=== PATIENT | male | born 1960 | race Caucasian/White ===

== ENCOUNTER 2020-05-07 17:33 | Observation (INO) | payer OTHER, SELFPAY ==
--- NOTE | ~2020-05-07 | XR_ITS ---
EXAMINATION: XR chest 2V EXAM DATE: 05/07/2020 18:03 INDICATION: Mid chest pain after shoveling snow. History of myocardial infarction and stent. TECHNIQUE: Frontal and lateral projections of the chest obtained and reviewed. Comparison is made to prior examination from 12/28/2017. FINDINGS: Resolution of previously seen basilar opacities. The lungs are clear. There are no pleura l effusions. The cardiomediastinal silhouette is within normal limits. There is no pneumothorax tacos pected. The bones and soft tissues are unremarkable. IMPRESSION: No acute cardiopulmonary findings. Reviewed, dictated and finalized at location A. CH ASSEMBLER
--- NOTE | 2020-05-07 17:38 | ECG_ITS ---
Measurements Intervals [place] Rate: 62 P: 33 MO: 181 QRS: -37 QRSD: 150 T: 24 QT: 420 QTc: 428 Interpretive Statements SINUS RHYTHM LEFT AXIS DEVIATION RIGHT BUNDLE BRANCH BLOCK ABNORMAL ECG Electronically Signed On 05-08-2020 7:05:30 APPLICATION PROCESSOR by Pantera Trcaey D.O.
[2020-05-07 17:42] VITALS: BP 148/95; PULSE 74; RESP 18; TEMP 36.1; O2SAT 99
[2020-05-07 17:55] LABS: Basophils Absolute Auto 0.1 K/mm3 (0.0-0.1); Basophils Percent Auto 0.5 % (0.2-1.2); Eosinophils Absolute Auto 0.1 K/mm3 (0-0.3); Hematocrit 43.9 % (42.0-52.0); Hemoglobin 15.3 g/dL (14.0-18.0); Immature Granulocyte Absolute 0.03 K/mm3 (0.00-0.031); Immature Granulocyte Percent A 0.3 % (0-0.5); Lymphocytes Absolute Auto 2.52 K/mm3 (0.9-3.2); Lymphocytes Percent Auto 26.8 % (18.3-44.2); Mean Corpuscular HGB Conc 34.9 g/dl (32-36); Mean Corpuscular Hemoglobin 31.5 pg (26-34); Mean Corpuscular Volume 90.3 fl (80-100); Mean Platelet Volume 9.9 fl (7.4-10.4); Monocytes Absolute Auto 0.6 K/mm3 (0.1-0.6); Monocytes Percent Auto 6.6 % (2.6-8.5); Neutrophils Absolute Auto 6.1 K/mm3 (1.3-6.7); Neutrophils Percent Auto 64.8 % (45.5-73.1); Platelet Count Result 141 k/mm3 (150-375); Red Blood Count 4.86 M/mm3 (4.6-6.20); Red Cell Distribution Width 11.9 % (11.5-14.5); White Blood Count 9.4 K/mm3 (4.5-10.0)
[2020-05-07 18:04] LABS: Prothrombin Time 13.3 Seconds (11.1-14.7)
[2020-05-07 18:05] LABS: Partial Thromboplastin Time 25.7 SECONDS (22.3-36.8)
[2020-05-07 18:06] LABS: Anion Gap 7 mmol/L (8-16); Blood Urea Nitrogen 17 mg/dL (9-20); Calcium 9.8 mg/dL (8.4-10.2); Carbon Dioxide 28 mmol/L (22-30); Chloride 105 mmol/L (98-107); Estimated CRCL calculation 96 ml/min; Estimated Glomerular Filt Rate > 60; Glucose 108 mg/dL (75-110); Potassium 4.4 mmol/L (3.4-5.0); Sodium 140 mmol/L (137-145)
[2020-05-07 18:18] LABS: Troponin I < 0.012 ng/mL (0.000-0.034)
[2020-05-07 18:50] VITALS: BP 129/74; BP 153/84; PULSE 80; PULSE 83; PULSE 84; RESP 11; RESP 16; TEMP 36.4; O2SAT 98; O2SAT 99
--- NOTE | 2020-05-07 18:52 | PC.NURSE ---
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
[2020-05-07] MEDS: ASPIRIN 81 MG CHEWABLE TABLET PO (19:07)
--- NOTE | 2020-05-07 19:10 | PC.NURSE ---
Report to KEVIN Porter at this time, he has assumed pt care.
--- NOTE | 2020-05-07 19:55 | ED.GENADULT ---
HPI - General Adult General Chief complaint: Chest Pain Stated complaint: chest discomfort Time Seen by Provider: 05/07/20 19:05 Source: patient History of Present Illness HPI narrative: Patient is 59 y/o male complaining of intermittent chest pain for 1 week. He describes his pain as burning and rates it as 4/10. There is no pain radiation. He states that his chest pain is worse with activity. His pain got worse today after shoveling snow. He has no SOB, cough or fever. Related Data Home Medications Medication Instructions Recorded Confirmed aspirin 81 mg PO DAILY 05/07/20 05/08/20 atorvastatin 80 mg PO HS 05/07/20 05/07/20 ezetimibe 10 mg PO DAILY 05/07/20 05/08/20 Allergies Allergy/AdvReac Type Severity Reaction Status Date / Time Penicillins Allergy Unknown Verified 05/08/20 10:51 Review of Systems Constitutional: Constitutional: Denies chills, Denies fever(s), Denies headache(s) and Denies weakness Eyes: Eyes: Denies blurry vision ENT: Denies headache(s) and Denies neck pain Cardiovascular: Cardiovascular: Reports chest pain and Denies dyspnea Respiratory: Respiratory: Denies cough and Denies dyspnea Gastrointestinal: Gastrointestinal: Denies abdominal pain, Denies diarrhea, Denies nausea and Denies vomiting Genitourinary: Genitourinary: Denies hematuria and Denies dysuria Musculoskeletal: Musculoskeletal: Denies back pain and Denies neck pain Neurologic: Denies headache(s) and Denies weakness PMFSH Past Medical History Medical History CAD (coronary artery disease) Essential (primary) hypertension Myocardial infarction Surgical History Surgical History History of heart artery stent Family History Family History Mother Heart disease COPD (chronic obstructive pulmonary disease) Cardiomegaly Social History Social History Smoking status: Former smoker Alcohol intake: current Drinks per week: 4 Substance use: never Substance use type: does not use Gender identity (if verbalized by the patient): Male Spiritual care concerns: No Exam Const: General: no acute distress and well developed Orientation/consciousness: oriented to person, oriented to place, oriented to time and patient oriented x3 HENMT: Head: normocephalic Ears: external ears normal General nose exam: Normal external nose present Eyes: General: appearance normal, both eyes and all related structures Conjunctivae: conjunctivae normal Neck: Neck: normal visual inspection and full ROM Chest: Chest palpation & inspection: normal inspection of the chest and no tenderness Resp: Effort & Inspection: normal respiratory effort Auscultation: clear to auscultation bilaterally Cardio: Rate: regular rate Rhythm: regular rhythm GI: GI Palp: No abdominal tenderness and Yes Soft to palpation Skin: General skin exam: normal color and turgor normal Neuro: General: oriented to person, oriented to place, oriented to time and patient oriented x3 Cognition (Neuro): normal cognition Extrem: General: normal to inspection, full ROM and no pedal edema Psych: Appearance: grossly normal Mental Status: mental status grossly normal Affect: normal affect Course Consultations Consultation #1: Discussed with Dr. Ballard, who recommends admitting to hospitalist and he will consult. Date: 05/07/20 Time: 20:50 Consultation #2: Discussed with Dr. Hay, who agrees to admit. Date: 05/07/20 Time: 21:21 Vital Signs Vital signs: Vital Signs Temperature 36.1 C L 05/07/20 17:42 Pulse Rate 74 05/07/20 17:42 Respiratory Rate 18 05/07/20 17:42 Blood Pressure 148/95 H 05/07/20 17:42 Pulse Oximetry 99 05/07/20 17:42 Temperature 36.4 C L 05/09/20 08:00 Pulse Rate 72 05/09/20 10:00 Respiratory Rate 16 0
[2020-05-07 20:54] VITALS: BP 120/75; PULSE 69; RESP 20; O2SAT 100
[2020-05-07 21:03] LABS: Troponin I < 0.012 ng/mL (0.000-0.034)
[2020-05-07 21:42] VITALS: BP 132/77; PULSE 65; RESP 20; O2SAT 99
--- NOTE | 2020-05-07 22:09 | PM.IMHP ---
H&P: HPI History of Present Illness Date/Time: 05/07/20 22:09 Chief Complaint: Burning chest pain for the past week. Narrative: This is a pleasant 59 year old male with known past medical history of CAD+ s/p Cardiac arrest s/p #1 stent placed and hyperlipidemia who presented to the hospital with a complaint of worsening exertional chest pain today. The patient has had 1 week of intermittent burning chest discomfort which he believed was just indigestion and heart burn. Today he became worried because he was shoveling snow when he started to get severe chest pain. He mentions that he had similar burning chest pain in the past when he suffered a heart attack about 5 years ago. His chest pain is not associated with diaphoresis, nausea, vomiting, shortness of breath or dizziness. His chest pain does not radiate anywhere and lasted several hours tonight. On further questioning he denies any recent fevers, chills, abdominal pain, nausea, vomiting, dysuria, hematuria, diarrhea, rectal bleeding, or LE swelling. The patient was evaluated in the ER and EKG showed a RBBB. Initial troponin was negative. ER provider has consulted Cardiology who has asked that we admit the patient for them and they will evaluate him in the morning. No other complaints tonight. Review of Systems Review of Systems: All systems reviewed & are unremarkable except as noted in HPI and below PMFSH Past Medical History Medical History CAD (coronary artery disease) Essential (primary) hypertension Myocardial infarction Surgical History Surgical History History of heart artery stent Family History Family History Mother Heart disease COPD (chronic obstructive pulmonary disease) Cardiomegaly Social History Social History Smoking status: Former smoker Alcohol intake: current Drinks per week: 4 Substance use: never Substance use type: does not use Gender identity (if verbalized by the patient): Male Spiritual care concerns: No Meds Home Medications and Allergies Home Medications Medication Instructions Recorded Confirmed Type aspirin 81 mg PO DAILY 05/07/20 History atorvastatin 80 mg PO HS 05/07/20 05/07/20 History carvedilol 3.125 mg PO BID 05/07/20 History ezetimibe 10 mg PO DAILY 05/07/20 History lisinopril 5 mg PO DAILY 05/07/20 History Allergies Allergy/AdvReac Type Severity Reaction Status Date / Time Penicillins Allergy Unknown Verified 12/28/17 19:35 Vital Signs Vital Signs - 24 hr 05/07/20 17:42 05/07/20 18:50 05/07/20 20:54 Temperature 36.1 C L 36.4 C Pulse Rate 74 83 69 Respiratory Rate 18 11 L 20 Blood Pressure 148/95 H 129/74 120/75 Pulse Oximetry 99 99 100 05/07/20 21:42 Temperature Pulse Rate 65 Respiratory Rate 20 Blood Pressure 132/77 Pulse Oximetry 99 Exam Const: General: cooperative, healthy appearing, no acute distress, alert and awake Nutritional Appearance: well nourished Orientation/consciousness: patient oriented x3 HENMT: Head: normal to inspection General nose exam: Normal external nose present Face and sinus: normal facial exam Mouth: Yes Normal oral and palatal mucosa present and Yes oropharynx normal Eyes: Pupils: Equal, round and reactive pupils present EOM: EOMs intact bilaterally Neck: Neck: supple and no JVD Thyroid: thyroid normal Lymphatic: lymphadenopathy not noted Resp: Effort & Inspection: normal respiratory effort Auscultation: clear to auscultation bilaterally Cardio: Rate: regular rate Rhythm: regular rhythm Heart sounds: no murmurs GI: Inspection: normal to inspection Auscultation: normal bowel sounds Skin: General skin exam: normal color and no rashes or lesions noted Neuro: General: patient oriented x3 Cranial nerves: Yes
[2020-05-07 22:34] VITALS: BP 137/86; PULSE 73; RESP 20; TEMP 36.7; O2SAT 96; BMI 28.4
--- NOTE | 2020-05-07 22:43 | ECG_ITS ---
Measurements Intervals [place] Rate: 76 P: 18 ND: 170 QRS: -42 QRSD: 149 T: 10 QT: 375 QTc: 424 Interpretive Statements SINUS RHYTHM LEFT AXIS DEVIATION RIGHT BUNDLE BRANCH BLOCK ABNORMAL ECG Electronically Signed On 05-08-2020 13:06:59 IS MANAGER by Pantera Trcaey D.O.
--- NOTE | 2020-05-07 22:43 | ADMGEN ---
This patient, David Hartley, was admitted to IMU Room 205-01. Patient/family oriented to hospital policies and general routines including ID bracelet, bed and alarms, visiting hours, pain management, procedures, bathroom and other care routines, personal items, smoking policy, room service/diet, and visiting hours. Information on how to activate the Rapid Response Team has been discussed. Patient/Family are encouraged to report perceived risks to care and to ask questions if they do not understand what they are told or what they should do.
[2020-05-07 23:26] LABS: Magnesium 2.1 mg/dL (1.6-2.3)
[2020-05-07 23:27] VITALS: PULSE 78
[2020-05-07 23:28] LABS: Alanine Aminotransferase 37 U/L (4-50); Alkaline Phosphatase 55 U/L (38-126); Aspartate Amino Transferase 42 U/L (17-59); Lipase 115 U/L (23-300)
[2020-05-07 23:39] LABS: Troponin I < 0.012 ng/mL (0.000-0.034)
[2020-05-08] VITALS (21 sets, daily range): BP systolic 111–143; BP diastolic 66–88; PULSE 60–89; RESP 14–23; TEMP 35.8–36.6; O2SAT 95–100
--- NOTE | 2020-05-08 | ECHO_ITS ---
Patient Info Name: David Hartley Age: 59 years : 1960 Gender: Male Ht: 70 in Wt: 198 lbs BSA: 2.12 m2 HR: 87 bpm BP: 116 / 73 mmHg Heart Rhythm: Sinus Rhythm Technical Quality: Good Exam Date: 05/08/2020 11:07 AM Exam Location: [facility] Pulmonary Patient Status: Inpatient Admit Date: 05/07/2020 Staff Ordering Physician: Raúl Ballard MD Multiple Sclerosis Nurse: Myke Guardado RDCS Attending Provider: Santana Michel MD Referring Physician: Nellie ELIZONDO; Exam Type: CA echo dop color flow w con Study Info Indications I20.0 - Unstable angina Complete two-dimensional, color flow and Doppler transthoracic echocardiogram is performed with contrast to opacify the left ventricle and to improve the deliniation of the left ventricle endocardial borders. Contrast/Agitated Saline Contrast/Ag. Saline: Definity Amount: 4.00 ml Administered By: Stephanie Montanez RN Existing IV Access: Yes History/Risk Factors Unstable angina, CAD/IA, HTN. Summary 1. Left ventricular chamber dimension is normal. 2. Left ventricular systolic function is mildly reduced, estimated at 50-55%. 3. There is mildly increased left ventricular wall thickness. 4. The left ventricular diastolic function is grade I diastolic dysfunction. 5. The apical cap is akinetic. 6. The basal anteroseptal is hypokinetic. 7. There is mild aortic valve sclerosis. 8. There is trace mitral valve regurgitation. Left Ventricle Left ventricular chamber dimension is normal. Left ventricular systolic function is mildly reduced, estimated at 50-55%. There is mildly increased left ventricular wall thickness. The left ventricular diastolic function is grade I diastolic dysfunction. The apical cap is akinetic. The basal anteroseptal is hypokinetic. All other vazquez appear normal. Right Ventricle Right ventricular chamber dimension is normal. Right ventricular systolic function is normal. Left Atria Left atrial chamber dimension is normal. Right Atria Right atrial chamber dimension is normal. Atrial Septum Intact interatrial septum visualized by color flow imaging. Aortic Valve The aortic valve is trileaflet. There is mild aortic valve sclerosis. There is no aortic valve stenosis. There is trace aortic valve regurgitation. Pulmonic Valve The pulmonic valve is normal. There is no pulmonic valve stenosis. There is trace pulmonic regurgitation. Mitral Valve The mitral valve has normal leaflets. There is no mitral valve stenosis. There is trace mitral valve regurgitation. Tricuspid Valve The tricuspid valve leaflets are normal. There is no significant tricuspid valve stenosis. There is trace tricuspid valve regurgitation. Pericardium/Pleural The pericardium appears normal. There is no pericardial effusion. Inferior Vena Cava Normal inferior vena cava with >50% collapse upon inspiration consistent with normal right atrial pressure, 5 mmHg. Aorta The aortic root size at the sinus of Valsalva is normal. The prox ascending aorta size is normal. Tricuspid Valve Name Value Normal Estimated PAP/RSVP RA Pressure 5 mmHg
[2020-05-08 05:16] LABS: Basophils Percent Auto 0.4 % (0.2-1.2); Eosinophils Absolute Auto 0.1 K/mm3 (0-0.3); Eosinophils Percent Auto 1.6 % (0-4.4); Hemoglobin 14.3 g/dL (14.0-18.0); Immature Granulocyte Absolute 0.02 K/mm3 (0.00-0.031); Immature Granulocyte Percent A 0.3 % (0-0.5); Lymphocytes Absolute Auto 2.16 K/mm3 (0.9-3.2); Lymphocytes Percent Auto 30.8 % (18.3-44.2); Mean Corpuscular Hemoglobin 31.4 pg (26-34); Mean Corpuscular Volume 92.3 fl (80-100); Mean Platelet Volume 10.2 fl (7.4-10.4); Monocytes Absolute Auto 0.6 K/mm3 (0.1-0.6); Monocytes Percent Auto 8.4 % (2.6-8.5); Neutrophils Absolute Auto 4.1 K/mm3 (1.3-6.7); Neutrophils Percent Auto 58.5 % (45.5-73.1); Platelet Count Result 136 k/mm3 (150-375); Red Blood Count 4.55 M/mm3 (4.6-6.20)
[2020-05-08 05:34] LABS: Anion Gap 6 mmol/L (8-16); Blood Urea Nitrogen 18 mg/dL (9-20); Calcium 8.6 mg/dL (8.4-10.2); Carbon Dioxide 29 mmol/L (22-30); Chloride 105 mmol/L (98-107); Estimated CRCL calculation 67 ml/min; Estimated Glomerular Filt Rate > 60; Glucose 106 mg/dL (75-110); Potassium 4.5 mmol/L (3.4-5.0); Sodium 140 mmol/L (137-145)
[2020-05-08] MEDS: ASPIRIN 81 MG ENTERIC TABLET PO (08:56)
[2020-05-08] MEDS: ENOXAPARIN 40 MG/0.4 ML SYRINGE SUB-Q (08:56)
--- NOTE | 2020-05-08 10:22 | PM.CNCAR ---
Assessment and Plan Assessment and plan (1) Unstable angina: Code(s): I20.0 - Unstable angina Status: Acute Assessment and Plan: His symptoms are consistent with unstable angina. Troponins are negative but his symptoms are exactly like he had prior to his cardiac arrest and occluded LAD in 2016. I did talked about the risks benefits alternatives of proceeding with ischemic evaluation either with a stress test or a coronary angiogram to define his anatomy. Given the unstable nature of his symptoms, decision was made to proceed directly with coronary angiogram to define his anatomy. He verbalized understanding and is agreeable. Will keep NPO for a cardiac catheterization today. Continue aspirin 81 mg p.o. daily. Continue statin. 2D echocardiogram Doppler will be ordered and reviewed. Lisinopril 5 mg p.o. daily to be started. Carvedilol 6.25 mg p.o. b.i.d. to be started. Patient was on Zetia at home and this will be also continued to 10 mg daily. (2) Essential (primary) hypertension: Code(s): I10 - Essential (primary) hypertension Status: Chronic Assessment and Plan: Will increase carvedilol as above and continue lisinopril (3) Hyperlipidemia: Code(s): E78.5 - Hyperlipidemia, unspecified Status: Chronic Assessment and Plan: Continue high-dose statin (4) Chest pain: Code(s): R07.9 - Chest pain, unspecified Status: Acute Assessment and Plan: Consistent with ACS (5) Coronary artery disease: Code(s): I25.10 - Atherosclerotic heart disease of [place] coronary artery without angina pectoris Status: Acute Assessment and Plan: Previous LAD occlusion History of Present Illness History of Present Illness Consult date/time: 05/08/20 10:22 Requesting physician: Mady Martinez MD Consult reason: chest pain Reason For Visit: chest pain Narrative: Date of service 04/07/2020 History: Patient is a 59-year-old male patient of Dr. Estes who sustained VF arrest following a anterior septal myocardial infarction in 2016. He received 4 shocks at that time in the emergency department. Coronary angiogram showed 100% occlusion of the proximal LAD. He also had EF of 25-30%. Eventually his ejection fraction has improved up to around 50%. He was recently seen by Dr. Estes and was feeling well but over the past week he started to have symptoms reminiscent of his symptoms prior to his near experience. Over the past week he has been having some ?heartburn?. It is located in his anterior chest without radiation. It does occur with and without exertion. Over the past week or so he has had several episodes. Yesterday he was outside shoveling snow and his symptoms started again. He went inside and sat down and his symptoms gradually subsided after about 45 minutes. He had no associated symptoms nor was it associated with any nausea, shortness of breath or diaphoresis. The symptoms again are exactly like what he had prior to his previous myocardial infarction. He denies any syncope, presyncope, paroxysmal nocturnal dyspnea, orthopnea, edema or palpitations. Review of Systems Review of Systems: All systems reviewed & are unremarkable except as noted in HPI and below Constitutional: Constitutional: Denies weakness Eyes: Eyes: Denies blurry vision ENT: Reports Normal hearing present Cardiovascular: Cardiovascular: Reports chest pain Respiratory: Respiratory: Denies dyspnea Gastrointestinal: Gastrointestinal: Denies abdominal pain Genitourinary: Genitourinary: Denies dysuria and Denies urinary frequency Musculoskeletal: Musculoskeletal: Denies back pain and Denies neck pain Integumentary/Breasts: Skin/Breast: Denies dry skin Neurologic: Denies headache(s) Psychiatric: Psychiatric: Denies anxiety Endocrine: Endocrine: Denies fatigue Hematologic/Lymphatic: Hematologic/Lymphatic: Denies easy bleeding Allergic/Immunologic: Allergic/
[2020-05-08] MEDS: PERFLUTREN LIPID MICROSPHERES 1.5 ML VIAL DILUTED TO 10 ML TOTAL VOLUME IV PUSH (11:30)
--- NOTE | 2020-05-08 12:04 | WPDMODSED ---
Moderate Sedation Note-Pt Data Patient Data Diagnosis: episode of chest pain following snow shoveling history of coronary artery disease with emergency PCI to proximal LAD in 2016 in the setting of anterior wall infarction. Present Complaint: No complaints Procedure to be performed/Plan: follow-up left heart catheterization Allergies Allergy/AdvReac Type Severity Reaction Status Date / Time Penicillins Allergy Unknown Verified 05/08/20 10:51 Home Medications Medication Instructions Recorded Confirmed Type aspirin 81 mg PO DAILY 05/07/20 05/08/20 History atorvastatin 80 mg PO HS 05/07/20 05/07/20 History carvedilol 3.125 mg PO BID 05/07/20 05/08/20 History ezetimibe 10 mg PO DAILY 05/07/20 05/08/20 History lisinopril 5 mg PO DAILY 05/07/20 05/08/20 History Current Medications: Active Medications Acetaminophen (Acetaminophen 325 Mg Tablet) 650 mg PO Q4H PRN PRN Reason: Mild Pain (1-3) or Fever Hydrocodone Bitart/Acetaminophen (Hydrocodone/Acetaminophen (*Crx) 5-325 Mg Tablet) 1 tab PO Q4H PRN PRN Reason: Moderate Pain (4-6) Aspirin (Aspirin 81 Mg Enteric Tablet) 81 mg PO QAM [facility] Last Admin: 05/08/20 08:56 Dose: 81 mg Documented by: Atorvastatin Calcium (Atorvastatin 40 Mg Tablet) 80 mg PO HS [facility] Carvedilol (Carvedilol 6.25 Mg Tablet) 6.25 mg PO Q12HR [facility] Ezetimibe (Ezetimibe 10 Mg Tablet) 10 mg PO QAM [facility] Enoxaparin Sodium (Enoxaparin 40 Mg/0.4 Ml Syringe) 40 mg SUB-Q DAILY [facility] Last Admin: 05/08/20 08:56 Dose: 40 mg Documented by: Lisinopril (Lisinopril 5 Mg Tablet) 5 mg PO QAM [facility] Nitroglycerin (Nitroglycerin Sl 0.4 Mg Tablet) 0.4 mg SUBLINGUAL Q5MIN PRN PRN Reason: Chest Pain Sedation/Anesthesia: No previous sedation/anesthesia problems (including family history). [facility] Past Medical History Medical History CAD (coronary artery disease) Essential (primary) hypertension Myocardial infarction Surgical History Surgical History History of heart artery stent Family History Family History Mother Heart disease COPD (chronic obstructive pulmonary disease) Cardiomegaly Social History Social History (System 05/08/20 @ 10:51 by Angela Corey) Smoking status: Former smoker Alcohol intake: current Drinks per week: 4 Substance use: never Substance use type: does not use Gender identity (if verbalized by the patient): Male Spiritual care concerns: No Mod Sed Physical Exam Physical Exam Pre Procedural Exam: Normal: Appearance, Neck, Throat, Airway, Lungs, Heart Size, Heart Rate, Heart Rhythm, Neuro Exam and Extremities Hours since solid foods: 12 Hours since liquid intake: 12 Internal Medicine - PN: Obj Da Vital Signs Vital Signs: Vital Signs - 24 hr 05/07/20 17:42 05/07/20 18:50 05/07/20 20:54 Temperature 36.1 C L 36.4 C Pulse Rate 74 83 69 Respiratory Rate 18 11 L 20 Blood Pressure 148/95 H 129/74 120/75 Pulse Oximetry 99 99 100 05/07/20 21:42 05/07/20 22:34 05/07/20 23:27 Temperature 36.7 C Pulse Rate 65 73 78 Respiratory Rate 20 20 Blood Pressure 132/77 137/86 Pulse Oximetry 99 96 05/08/20 00:00 05/08/20 02:00 05/08/20 04:00 Temperature 36.5 C Pulse Rate 63 64 60 Respiratory Rate 20 Blood Pressure 111/66 Pulse Oximetry 100 05/08/20 06:00 05/08/20 08:00 05/08/20 10:00 Temperature 36.0 C L Pulse Rate 67 64 70 Respiratory Rate 16 Blood Pressure 122/71 Pulse Oximetry 100 Intake/Output Intake/Output: Intake & Output 05/05/20 05/06/20 05/07/20 05/08/20 23:59 23:59 23:59 23:59 Intake Total 400 Output Total 1150 Balance -750 Meds/Results Medications: Active Medications Generic Name Dose Route Start Last Admin Trade Name Freq PRN Reason Stop Dose Admin Acetaminophen 650 mg 05/07/20 22:42 Acetaminophen 325 Mg Tab
--- NOTE | 2020-05-08 12:25 | PC.NURSE ---
Patient to component lab tech via stretcher. Report given to KEVIN Mcmullen.
--- NOTE | 2020-05-08 13:19 | WPDCARDPROC ---
Cardiac Cath Procedure Note Date of procedure:: 05/08/20 Performing physician:: Lee Lopez MD Indication:: episode of chest pain with snow shoveling known coronary disease previous TX/PCI Brief clinical history:: this is a 59-year-old man who sustained an anterior wall infarction in 2016 which was complicated by ventricular fibrillation. He underwent emergency stenting of his proximal LAD at that time. He did have some [id number] mid to distal RCA disease at that time as well. The patient entered the hospital now with an episode of chest pain that occurred following snow shoveling. Coronary biomarkers are negative Procedure Procedure performed:: left ventriculography coronary angiography IFR determination in RCA Angio-Seal to right femoral artery Sedation/Medication given:: fentanyl 50 mg Versed 2 mg case start time 12:39 p.m. case end time 1:12 p.m. sedation provided by Kemi Bush RN, trained observer Access site:: right femoral artery Estimated blood loss:: 10-15 cc Procedure note:: patient was brought to the cardiac catheterization lab in the postabsorptive state the right femoral triangle was prepared in the usual fashion. Anesthesia was provided with 1% lidocaine infiltrated locally. Using the modified Seldinger technique a 5 [place] sheath was placed into the femoral artery after this I used an angled pigtail catheter to a not document left-sided hemodynamics and To inject LV g in the HUGO projection. Following this the left coronary was injected using a standard 5 [place] FL4 catheter in the right coronary was injected using a standard 5 Tong[place] JR4 catheter. The cine angiograms were then reviewed. There was question as to significant stenosis in the mid to distal RCA. For this reason I elected to measure IFR in the right coronary artery. The patient received a full dose of Lovenox 5 hours ago so he was not given any additional anticoagulation for the IFR measurement. During IFR measurement wall the catheter/ system was being flushed with saline for accurate IFR determination the patient developed ventricular fibrillation which was terminated with 1 200 joule countershock. Following this IFR determination was carried out. The procedure was then terminated. An angiogram was done of the femoral artery through the sheath after which a 6 [place]an Angio-Seal device was used to provide hemostasis. Patient was taken to the holding area for recovery. There was no the evidence of a groin hematoma upon completion of the procedure. Findings:: Hemodynamics: Central aortic pressure is 146/78 left ventricle 146/7 end-diastolic pressure 16. There is no gradient on pullback across the aortic valve. Left ventricle: The LV is mildly enlarged the mid to apical anterior wall as hypodynamic the global ejection fraction is 50% by visual estimation. Left main coronary artery is widely patent the LAD is a moderate caliber artery extending down to around the apex. There is a long area of visible stent material in the proximal LAD at the site of the previous PCI. This remains widely patent. Proximal to this there is about 30-40% stenosis in the LAD, distal to this there is about 50% stenosis in the LAD at the distal margin of the stent. In comparison angiogram son from 2016 at the end of the PCI this looks unchanged. Circumflex is a moderate caliber artery giving rise to the marginal branches the circumflex and its branches are smooth and free of significant disease. Right coronary artery is medium in caliber and is dominant to the posterior circulation. There is stenosis in the mid to distal RCA between the 2nd and 3rd portions of the vessel in some projections it appears to be as much as 60-70% stenosis in other projections approximately 40-50% stenosis. It appears to be slightly worse angiographically that it was in 2016. IFR was done of this lesion at this time and it measures 0.94. Conclusion:: 1. C
[2020-05-08 14:07] LABS: Folic Acid > 20.0 ng/mL (2.76->20)
--- NOTE | 2020-05-08 14:35 | PC.NURSE ---
Patient returned to room following cardiac cath. Report received from KEVIN Mcmullen.
[2020-05-08] MEDS: SODIUM CHLORIDE 0.9% IV 1,000 ML 125 ML IV CONT (14:47)
[2020-05-08] MEDS: lisinopriL 5 MG TABLET PO (15:27)
[2020-05-08] MEDS: EZETIMIBE 10 MG TABLET PO (15:27)
[2020-05-08] MEDS: carvediloL 6.25 MG TABLET PO (15:27)
--- NOTE | 2020-05-08 17:13 | PM.IMPN ---
Progress Note: A&P Assessment and Plan (1) Chest pain: Code(s): R07.9 - Chest pain, unspecified Status: Acute Assessment and Plan: Patient presented with complaints of chest pain. He describes some as GERD symptoms. Troponins negative x3. EKG showing no acute ischemic findings. Chest x-ray clear. Left heart catheterization results as mentioned below. Chest pain not felt to be related to cardiac etiology. Lipase normal. Appreciate Cardiology input. Add Pepcid. (2) Ventricular fibrillation: Code(s): I49.01 - Ventricular fibrillation Status: Acute Assessment and Plan: Patient had episode of ventricular fibrillation during the heart catheterization procedure when flushing the RCA. Patient was cardioverted out of VFib. No history of VFib or V-tach. Monitor on telemetry. (3) Coronary artery disease: Code(s): I25.10 - Atherosclerotic heart disease of [place] coronary artery without angina pectoris Status: Acute Assessment and Plan: Patient has a history of coronary disease. Left heart catheterization today showing continued patency of proximal LAD stent with disease in the proximal and mid LAD that looks angiographically unchanged from 2016. Moderate mid to distal RCA lesion that looks slightly worse (but IFR is indicative of non flow limiting disease at 0.94). Continue medical management with aspirin, Lipitor, Zetia, Coreg and lisinopril. (4) Hyperlipidemia: Code(s): E78.5 - Hyperlipidemia, unspecified Status: Chronic Assessment and Plan: LFTs within normal limits. Continue atorvastatin and ezetimibe. (5) Essential (primary) hypertension: Code(s): I10 - Essential (primary) hypertension Status: Chronic Assessment and Plan: Patient's blood pressure was reviewed on 05/08 Blood pressure remains well controlled. Will continue current medications. (6) DVT prophylaxis: Code(s): Z29.9 - Encounter for prophylactic measures, unspecified Status: Acute Assessment and Plan: Lovenox Subjective Date/time seen: 05/08/20 17:13 Interval history: Date of service 05/08 59yo male with known CAD here for CP. Patient had his last heart catheterization 4-5 years ago. No stress test since that time. The chest pain felt like heartburn. No radiation of the pain. He has been having symptoms for about a week. No chest pain currently. Exam Narrative: Exam Narrative: AF 97.8 125/76 68 15 98% ra Gen - NARD Chest - CTA bilaterally, nml RR CV - RRR S1/S2; Tele showing no significant dysrhythmias Abd - Soft, NT/ND, Positive BS Ext - No pedal edema Psych - Nml mood and affect Skin - Warm and dry Objective Data Vital Signs Vital Signs: Vital Signs - 24 hr 05/07/20 17:42 05/07/20 18:50 05/07/20 20:54 Temperature 96.9 F L 97.6 F Pulse Rate 74 83 69 Respiratory Rate 18 11 L 20 Blood Pressure 148/95 H 129/74 120/75 Pulse Oximetry 99 99 100 05/07/20 21:42 05/07/20 22:34 05/07/20 23:27 Temperature 98.0 F Pulse Rate 65 73 78 Respiratory Rate 20 20 Blood Pressure 132/77 137/86 Pulse Oximetry 99 96 05/08/20 00:00 05/08/20 02:00 05/08/20 04:00 Temperature 97.7 F Pulse Rate 63 64 60 Respiratory Rate 20 Blood Pressure 111/66 Pulse Oximetry 100 05/08/20 06:00 05/08/20 08:00 05/08/20 10:00 Temperature 96.8 F L Pulse Rate 67 64 70 Respiratory Rate 16 Blood Pressure 122/71 Pulse Oximetry 100 05/08/20 12:00 05/08/20 13:30 05/08/20 13:45 Temperature 97 F L 97.8 F Pulse Rate 71 80 69 Respiratory Rate 16 18 14 Blood Pressure 113/75 125/88 125/84 Pulse Oximetry 99 98 98 05/08/20 14:00 05/08/20 14:15 05/08/20 14:47 Temperature Pulse Rate 75 62 66 Respiratory Rate 23 H 15 Blood Pressure 142/77 H 125/76 Pulse Oximetry 100 98 05/08/20 15:27 05/08/20 16:00 Temperature Pulse Rate 68 68 Respiratory Rate Blood Pressure Pulse Oximetry
[2020-05-08] MEDS: ATORVASTATIN 40 MG TABLET 80 MG PO (20:09)
[2020-05-08] MEDS: FAMOTIDINE 20 MG TABLET PO (20:09)
[2020-05-08] MEDS: ACETAMINOPHEN 325 MG TABLET 650 MG PO (20:11)
[2020-05-09] VITALS (9 sets, daily range): BP systolic 116–129; BP diastolic 56–85; PULSE 57–74; RESP 16–20; TEMP 36.4–36.7; O2SAT 97–100
[2020-05-09] MEDS: carvediloL 6.25 MG TABLET PO ×2 (00:28→08:41)
[2020-05-09] MEDS: ACETAMINOPHEN 325 MG TABLET 650 MG PO (08:40)
[2020-05-09] MEDS: FAMOTIDINE 20 MG TABLET PO (08:41)
[2020-05-09] MEDS: lisinopriL 5 MG TABLET PO ×2 (08:41→10:22)
[2020-05-09] MEDS: EZETIMIBE 10 MG TABLET PO (08:41)
[2020-05-09] MEDS: ASPIRIN 81 MG ENTERIC TABLET PO (08:41)
--- NOTE | 2020-05-09 09:51 | PM.PNCARD ---
Progress Note: A&P Assessment and Plan (1) Unstable angina: Code(s): I20.0 - Unstable angina Status: Acute Assessment and Plan: His symptoms are consistent with unstable angina. Troponins are negative but his symptoms are exactly like he had prior to his cardiac arrest and occluded LAD in 2016. I did talked about the risks benefits alternatives of proceeding with ischemic evaluation either with a stress test or a coronary angiogram to define his anatomy. Given the unstable nature of his symptoms, decision was made to proceed directly with coronary angiogram to define his anatomy. He verbalized understanding and is agreeable. Cardiac catheterization showed patent stent with some mild progression of his right coronary disease but IFR negative. Okay for discharge on current regimen including carvedilol 6.25 mg p.o. b.i.d., Zetia, lisinopril. Lisinopril will be increased to 10 mg daily. Continue aspirin, p.r.n. nitroglycerin, statin and H2 chris (2) Essential (primary) hypertension: Code(s): I10 - Essential (primary) hypertension Status: Chronic Assessment and Plan: Will increase lisinopril to 10 mg daily (3) Hyperlipidemia: Code(s): E78.5 - Hyperlipidemia, unspecified Status: Chronic Assessment and Plan: Continue high-dose statin (4) Chest pain: Code(s): R07.9 - Chest pain, unspecified Status: Acute Assessment and Plan: Consistent with ACS (5) Coronary artery disease: Code(s): I25.10 - Atherosclerotic heart disease of [place] coronary artery without angina pectoris Status: Acute Assessment and Plan: Previous LAD occlusion Subjective Date/time seen: 05/09/20 09:51 Interval history: 59yo male with known CAD here for CP. Patient had his last heart catheterization 4-5 years ago. Date of service 05/09/2020: Feels good. Wants to go home. No chest pain shortness of breath. Groin feels fine Review of Systems Review of Systems: All systems reviewed & are unremarkable except as noted in HPI and below Constitutional: Constitutional: Denies fatigue, Denies headache(s) and Denies weakness Eyes: Eyes: Denies blurry vision ENT: Reports Normal hearing present, Denies headache(s) and Denies neck pain Cardiovascular: Cardiovascular: Reports chest pain and Denies dyspnea Respiratory: Respiratory: Denies dyspnea Gastrointestinal: Gastrointestinal: Denies abdominal pain Genitourinary: Genitourinary: Denies dysuria and Denies urinary frequency Musculoskeletal: Musculoskeletal: Denies back pain and Denies neck pain Integumentary/Breasts: Skin/Breast: Denies dry skin Neurologic: Reports Normal hearing present, Denies headache(s) and Denies weakness Psychiatric: Psychiatric: Denies anxiety Endocrine: Endocrine: Denies fatigue Hematologic/Lymphatic: Hematologic/Lymphatic: Denies easy bleeding Allergic/Immunologic: Allergic/Immunologic: Denies GI upset with certain foods Exam Narrative: Exam Narrative: Alert and oriented. Appears to be in no acute distress. Pleasant and appropriate. Const: General: comfortable and no acute distress HENMT: General nose exam: Normal nares present Eyes: Sclera: sclerae normal Neck: Neck: supple and no JVD Chest: Other: No reproducible chest wall pain to palpation Resp: Auscultation: clear to auscultation bilaterally Cardio: Rate: regular rate Rhythm: regular rhythm GI: Inspection: normal to inspection Skin: General skin exam: normal color Other: Right groin clean dry and intact without hematoma ecchymosis or bruit Neuro: Cranial nerves: Yes Normal hearing present Cognition (Neuro): normal cognition Speech: normal speech Extrem: General: normal to inspection and no edema Psych: Mental Status: mental status grossly normal Objective Data Vital Signs Vital Signs: Vital Signs - 24 hr 05/08/20 10:00 05/08/20 12:00 05/08/20 13:30 Temperature 36.1 C L
--- NOTE | 2020-05-09 11:05 | PM.DS ---
DS: Admitting Diagnosis Admitting Diagnosis Admitting Diagnosis: Chest pain DS: Discharge Diagnosis Discharge Diagnosis (1) Chest pain: Code(s): R07.9 - Chest pain, unspecified Status: Acute Assessment and Plan: Patient presented with complaints of chest pain. He describes some as GERD symptoms. Troponins negative x3. EKG showing no acute ischemic findings. Chest x-ray clear. Left heart catheterization results as mentioned below. Chest pain not felt to be related to cardiac etiology. Lipase normal. Pepcid added (2) Ventricular fibrillation: Code(s): I49.01 - Ventricular fibrillation Status: Acute Assessment and Plan: Patient had episode of ventricular fibrillation during the heart catheterization procedure when flushing the RCA. Patient was cardioverted out of VFib. No history of VFib or V-tach. He was monitored on telemetry without recurrence. (3) Coronary artery disease: Code(s): I25.10 - Atherosclerotic heart disease of [place] coronary artery without angina pectoris Status: Acute Assessment and Plan: Patient has a history of coronary disease. Left heart catheterization 05/08 showing continued patency of proximal LAD stent with disease in the proximal and mid LAD that looks angiographically unchanged from 2016. Moderate mid to distal RCA lesion that looks slightly worse (but IFR is indicative of non flow limiting disease at 0.94). We continued medical management with aspirin, Lipitor, Zetia, Coreg and lisinopril. (4) Hyperlipidemia: Code(s): E78.5 - Hyperlipidemia, unspecified Status: Chronic Assessment and Plan: LFTs within normal limits. We continued atorvastatin and ezetimibe. (5) Essential (primary) hypertension: Code(s): I10 - Essential (primary) hypertension Status: Chronic Assessment and Plan: Patient's blood pressure was monitored closely. Blood pressure remained well controlled. We continued current medications. DS: Summary Hospital Course Reason for hospitalization: 59-year-old male with known coronary disease presents with complaints of chest pain. Please see H&P for details. Hospital Course: Please see above for details of hospital course. Status at Discharge Cognitive/behavioral status at discharge: Patient is stable for discharge. Time Spent with Patient Time attestation: Total time spent providing and/or coordinating discharge services: 34 minutes. Time spent: Greater than 30 minutes Exam Narrative: Exam Narrative: AF 97.5 129/85 72 16 100% ra Gen - NARD Chest - CTA bilaterally, nml RR CV - RRR S1/S2; Tele showing no significant dysrhythmias Abd - Soft, NT/ND, Positive BS Ext - No pedal edema. Right groin showing no fullness or pain Psych - Nml mood and affect Skin - Warm and dry DS: Data Data Completed and Pending Labs on day of discharge: Labs from last 24 hours 05/08/20 11:59 Vitamin B12 375.0 Folate > 20.0 H Discharge Plan Discharge Attending physician on discharge: Santana Michel Consulting providers: Raúl Ballard Discharging Clinician: Santana Michel Anticipated Discharge Date/Time: 05/09/20 11:25 Patient Disposition: Home, Self-Care Activity: other - see discharge instructions Diet: heart healthy Discharge Instructions: Please avoid large gathering, wear face coverings in public and practice social distance. Contact your doctor or come to the Emergency Room if you have any pain in the right leg or other worrisome symptoms. Avoid NSAIDs (ibuprofen, naproxen, Aleve). Tylenol is safe to take. Follow-up with your doctor in 1-2 weeks. Please call for appointment. Follow Cardiology discharge instructions. Patient Instructions: Antibiotic Form Stand Alone Forms: General Discharge Information Follow-up/Referrals: Raúl Ballard MD [Physician] - Keep Reg. Scheduled Appt. Dwight Ríos MD [Primary Care P
== END 2020-05-09 11:55 | disposition home or self-care (01) ==
LOC: ANHED 19:05 → ANHIMU 21:52
PROVIDERS: Specialist; Admitting Provider Family Medicine; Emergency Provider Emergency Medicine; PCP Family Medicine; Visit Provider Internal Medicine
PROC: 4A023N7 Measurement of Cardiac Sampling and Pressure, Left Heart, Percutaneous Approach (ICD-10-PCS; CPT 93452; principal; 2020-05-08 11:00)
PROC: 4A033BC Measurement of Arterial Pressure, Coronary, Percutaneous Approach (ICD-10-PCS; CPT 93571; 2020-05-08 11:00)
DX: I25.110 Atherosclerotic heart disease of native coronary artery with unstable angina pectoris (principal); I49.01 Ventricular fibrillation; R07.9 Chest pain, unspecified; I25.2 Old myocardial infarction; I35.8 Other nonrheumatic aortic valve disorders; I25.10 Atherosclerotic heart disease of native coronary artery without angina pectoris; I10 Essential (primary) hypertension; E78.5 Hyperlipidemia, unspecified; Z95.5 Presence of coronary angioplasty implant and graft; Z87.891 Personal history of nicotine dependence; Z79.82 Long term (current) use of aspirin
CPT/HCPCS: 36415; 71046; 80048; 82607; 82746; 83690; 83735; 84075; 84450; 84460; 84484; 85025; 85055; 85610; 85730; 93005; 93458; 93571; 96361; 96372; 99285; A9270; C1760; C1769; C1887; C1894; C8929; G0269; G0378; J1644; J1650; J2250; J3010; J7030; J7040; Q9957

== ENCOUNTER 2022-10-05 07:13 | Day surgery (SDC) | payer OTHER, SELFPAY ==
[2022-09-15 11:05] VITALS: BMI 34.4
--- NOTE | 2022-10-02 14:55 | WPDANESEPPF ---
Anes - Initial Pre Proc Eval Procedure: Operation Date: 10/05/22 09:00 Proposed Procedures p Screening Colonoscopy - Rinku Brizuela MD Date/Time: 10/02/22 14:55 Surgeon: Rinku Brizuela MD Pre Op Diagnosis: neoplasia screening Patient Data Age: 62 Gender: M Height: 1.78 m Weight: 109 kg Allergies Allergy/AdvReac Type Severity Reaction Status Date / Time Penicillins Allergy Unknown Other Verified 10/05/22 07:40 Home Medications Medication Instructions Recorded Confirmed Type aspirin 81 mg tablet 81 mg PO DAILY 05/07/20 10/05/22 History atorvastatin 80 mg tablet 80 mg PO HS 05/07/20 10/05/22 History ezetimibe 10 mg tablet 10 mg PO DAILY 05/07/20 10/05/22 History carvedilol 6.25 mg tablet (Coreg) 6.25 mg PO Q12HR #60 tabs 05/09/20 10/05/22 Rx famotidine 20 mg tablet 20 mg PO Q12HR #60 tabs 05/09/20 10/05/22 Rx lisinopril 10 mg tablet 10 mg PO QAM #30 tabs 05/09/20 10/05/22 Rx isosorbide mononitrate 30 mg 30 mg PO DAILY 05/06/22 10/05/22 History tablet,extended release 24 hr sodium,potassium,mag sulfates 17.5 See Rx Instructions PO .COMPLEX 08/18/22 10/05/22 Rx gram-3.13 gram-1.6 gram oral soln #354 mL (Suprep Bowel Prep Kit) Patient hx anesthesia problems: none Family hx anesthesia problems: none Results Review: All pre-operative results and documents have been reviewed as part of the pre-operative evaluation. [facility] Past Medical History Medical History (Updated 10/05/22 @ 07:58 by Rinku Brizuela MD) Atherosclerotic heart disease of [place] coronary artery without angina pectoris Coronary artery disease Erectile disorder Essential (primary) hypertension Family history of colon cancer Obesity Pure hypercholesterolemia, unspecified Surgical History Surgical History History of heart artery stent Presence of coronary angioplasty implant and graft Family History Family History (Updated 10/05/22 @ 07:59 by Rinku Brizuela MD) Mother Heart disease COPD (chronic obstructive pulmonary disease) Cardiomegaly Social History Social History (Updated 08/10/22 @ 09:30 by Abby Philip MA) Smoking status: Former smoker Tobacco type: cigarettes Second hand tobacco smoke exposure: No Alcohol intake: current Drinks per week: 4 Alcohol use details: 1x day Substance use: never Substance use type: does not use Lack of Transportation: No Lack of Food: Never True Current Housing: I Have Housing Concerned About Future Housing: No Difficulty Paying Gas/Electric Bills: No Difficulty Paying for Meds: No Currently Unemployed: No Education: Associate Degree Difficulty w/ Childcare or Family Care: No Living arrangements: with family Occupation/Education: occupation Gender identity (if verbalized by the patient): Male Sexual Orientation (if Verbalized by the Patient): Straight or Heterosexual Spiritual care concerns: No Anes - Eval Final PreProcedure Day of Procedure 10/02/22 14:55 Patient weight: obese Heart: regular rate and rhythm Lungs: clear to auscultation and normal air movement Airway: Mallampati scale class II Neurological: alert and oriented Last oral intake: >/= 8 hours ASA classification: III Emergent: no Anesthetic plan: proceed Anesthesia type and monitoring: general GIVS Results Review: All pre-operative results and documents have been reviewed as part of the pre-operative evaluation. Informed Consent: The patient's anesthetic plan and its attendant risks and benefits were discussed with the patient/family/POA. Questions were solicited and answers provided to the satisfaction of the patient/family/POA.
[2022-10-05 07:39] VITALS: BP 140/90; PULSE 80; RESP 20; TEMP 37.1; O2SAT 99
[2022-10-05] MEDS: LACTATED RINGERS 1,000 ML 150 ML IV CONT (07:44)
--- NOTE | 2022-10-05 07:55 | PM.HPGS ---
History of Present Illness History of Present Illness Consent: Risks, benefits, and alternatives have been discussed and questions answered. Patient agrees to proceed with procedure. Chief complaint: neoplasia screening Narrative: David Hartley Jr. is a 62 year old male Presents for screening colonoscopy. Patient reports his current weight appetite and bowel movements are normal. Patient denies abdominal pain. He has had no bleeding. Family history noncontributory. There are no family members with colon cancer. Patient has not had a prior screening colonoscopy. Patient presents today for colonoscopy. Review of Systems Review of Systems: Review of systems noncontributory. [facility] Past Medical History Medical History (Updated 10/05/22 @ 07:58 by Rinku Brizuela MD) Atherosclerotic heart disease of [place] coronary artery without angina pectoris Coronary artery disease Erectile disorder Essential (primary) hypertension Family history of colon cancer Obesity Pure hypercholesterolemia, unspecified Surgical History Surgical History History of heart artery stent Presence of coronary angioplasty implant and graft Family History Family History Mother Heart disease COPD (chronic obstructive pulmonary disease) Cardiomegaly Social History Social History (Updated 08/10/22 @ 09:30 by Abby Philip MA) Smoking status: Former smoker Tobacco type: cigarettes Second hand tobacco smoke exposure: No Alcohol intake: current Drinks per week: 4 Alcohol use details: 1x day Substance use: never Substance use type: does not use Lack of Transportation: No Lack of Food: Never True Current Housing: I Have Housing Concerned About Future Housing: No Difficulty Paying Gas/Electric Bills: No Difficulty Paying for Meds: No Currently Unemployed: No Education: Associate Degree Difficulty w/ Childcare or Family Care: No Living arrangements: with family Occupation/Education: occupation Gender identity (if verbalized by the patient): Male Sexual Orientation (if Verbalized by the Patient): Straight or Heterosexual Spiritual care concerns: No Meds Home Medications and Allergies Home Medications Medication Instructions Recorded Confirmed Type aspirin 81 mg tablet 81 mg PO DAILY 05/07/20 10/05/22 History atorvastatin 80 mg tablet 80 mg PO HS 05/07/20 10/05/22 History ezetimibe 10 mg tablet 10 mg PO DAILY 05/07/20 10/05/22 History carvedilol 6.25 mg tablet (Coreg) 6.25 mg PO Q12HR #60 tabs 05/09/20 10/05/22 Rx famotidine 20 mg tablet 20 mg PO Q12HR #60 tabs 05/09/20 10/05/22 Rx lisinopril 10 mg tablet 10 mg PO QAM #30 tabs 05/09/20 10/05/22 Rx isosorbide mononitrate 30 mg 30 mg PO DAILY 05/06/22 10/05/22 History tablet,extended release 24 hr sodium,potassium,mag sulfates 17.5 See Rx Instructions PO .COMPLEX 08/18/22 10/05/22 Rx gram-3.13 gram-1.6 gram oral soln #354 mL (Suprep Bowel Prep Kit) Allergies Allergy/AdvReac Type Severity Reaction Status Date / Time Penicillins Allergy Unknown Other Verified 10/05/22 07:40 Vital Signs Vital Signs - 24 hr 10/05/22 07:39 Temperature 98.7 F Pulse Rate 80 Respiratory Rate 20 Blood Pressure 140/90 Pulse Oximetry 99 Oxygen Delivery Room Air Exam Narrative: Physical exam reveals patient to be alert. Vital signs stable. HEENT exam is unremarkable. Patient is anicteric. Lungs are clear to auscultation and percussion. Heart is without murmur or extra sounds. Abdomen bowel sounds are present soft nontender with no organomegaly. Digital external rectal exam is normal. Assessment and Plan Assessment and plan (1) Encounter for screening colonoscopy: Code(s): Z12.11 - Encounter for screening for malignant neoplasm of colon Status: Acute Assessment and Plan: Patient presents t
[2022-10-05 09:33] VITALS: BP 106/62; PULSE 66; RESP 16; O2SAT 97
[2022-10-05 09:43] VITALS: BP 108/66; PULSE 62; RESP 16; O2SAT 98
[2022-10-05 09:53] VITALS: BP 117/73; PULSE 62; RESP 16; O2SAT 100
--- NOTE | 2022-10-05 14:20 | WPDANESPN ---
Anes - Prog Note Post-Op Date/Time: 10/05/22 14:20 Cardiovascular status: normal Respiratory status: normal Airway patency: baseline Mental status: baseline Post-Op hydration status: normal Vital Signs: Last Vital Signs Temp 37.1 C 10/05/22 07:39 Pulse 62 10/05/22 09:53 Resp 16 10/05/22 09:53 BP 117/73 10/05/22 09:53 Pulse Ox 100 10/05/22 09:53 O2 Del Method Room Air 10/05/22 09:53 Pain Score (VAS): 0 I/O: Intake & Output 10/04/22 10/05/22 10/05/22 23:59 07:59 15:59 Intake Total 600 Balance 600 Post-procedural complaints: none Patient Feedback: Patient satisfied with anesthetic care.
== END 2022-10-05 10:04 | disposition home or self-care (01) ==
PROVIDERS: PCP Family Medicine; Visit Provider Internal Medicine Gastroenterology
PROC: 0DJD8ZZ Inspection of Lower Intestinal Tract, Via Natural or Artificial Opening Endoscopic (ICD-10-PCS; CPT 45378; principal; 2022-10-05 09:00)
DX: Z12.11 Encounter for screening for malignant neoplasm of colon (principal)
CPT/HCPCS: 45385

== ENCOUNTER 2022-10-05 08:50 | Outpatient (NON) | payer OTHER, SELFPAY | END 2022-10-05 08:51 | disposition home or self-care (01) | LOC: ANHLAB 10-06 08:52 | PROVIDERS: PCP Family Medicine; Visit Provider Internal Medicine Gastroenterology | DX: Z80.0 Family history of malignant neoplasm of digestive organs (principal) | CPT/HCPCS: 88305 ==

== ENCOUNTER 2023-12-29 10:59 | Emergency (ER) | payer OTHER, SELFPAY ==
[2023-12-29] VITALS (10 sets, daily range): BP systolic 114–145; BP diastolic 77–91; PULSE 56–73; RESP 17–21; TEMP 36.6–36.8; O2SAT 97–100
--- NOTE | ~2023-12-29 | XR_ITS ---
EXAMINATION: XR chest 2V DATE: 12/29/2023 12:28 INDICATION: Dizziness. Leg weakness. TECHNIQUE: Frontal and lateral views of the chest were obtained. COMPARISON: Chest 2 views 05/07/2020 FINDINGS: There is no pneumonia, pleural effusion, or pneumothorax. The heart size is normal. There i s a chronic compression fracture in lower thoracic spine. IMPRESSION: 1. No acute cardiopulmonary disease. Reviewed, dictated and finalized at location A.
--- NOTE | 2023-12-29 11:15 | ECG_ITS ---
Test Date: 2023-12-29 11:18:13 Measurements Intervals [place] Rate: 73 P: 38 HI: 166 QRS: -52 QRSD: 154 T: 14 QT: 396 QTc: 437 Interpretive Statements SINUS RHYTHM RIGHT BUNDLE BRANCH BLOCK [120+ ms QRS DURATION, UPRIGHT V1, 40+ ms S IN I/aVL/V4/V5/V6] LEFT ANTERIOR FASCICULAR BLOCK [QRS AXIS <= -45, QR IN I, RS IN II] ABNORMAL ECG No previous ECG available for comparison Electronically Signed On 12-30-2023 07:45:39 CDT by Lee Lopez M.D.
[2023-12-29 12:14] LABS: Basophils Percent Auto 0.7 % (0.2-1.2); Eosinophils Absolute Auto 0.1 K/mm3 (0-0.3); Eosinophils Percent Auto 1.3 % (0-4.4); Hematocrit 39.7 % (42.0-52.0); Hemoglobin 13.4 g/dL (14.0-18.0); Immature Granulocyte Absolute 0.01 K/mm3 (0.00-0.031); Immature Granulocyte Percent A 0.2 % (0-0.5); Immature Platelet Fraction Pct 3.5 % (0.9-11.2); Lymphocytes Absolute Auto 1.52 K/mm3 (0.9-3.2); Lymphocytes Percent Auto 25.4 % (18.3-44.2); Mean Corpuscular HGB Conc 33.8 g/dl (32-36); Mean Corpuscular Hemoglobin 31.2 pg (26-34); Mean Corpuscular Volume 92.5 fl (80-100); Monocytes Absolute Auto 0.5 K/mm3 (0.1-0.6); Monocytes Percent Auto 7.7 % (2.6-8.5); Neutrophils Absolute Auto 3.9 K/mm3 (1.3-6.7); Neutrophils Percent Auto 64.7 % (45.5-73.1); Platelet Count Result 150 k/mm3 (150-375); Red Blood Count 4.29 M/mm3 (4.6-6.20); Red Cell Distribution Width 12.6 % (11.5-14.5)
[2023-12-29 12:24] LABS: Alanine Aminotransferase 23 U/L (6-50); Albumin Level 4.5 g/dL (3.5-5.1); Alkaline Phosphatase 65 U/L (38-126); Anion Gap 3 mmol/L (4-12); Aspartate Amino Transferase 28 U/L (17-59); Bilirubin,Total 1.4 mg/dL (0.2-1.3); Blood Urea Nitrogen 17 mg/dL (9-20); Calcium 8.8 mg/dL (8.4-10.2); Carbon Dioxide 28 mmol/L (22-30); Chloride 105 mmol/L (98-107); Estimated CRCL calculation 94 ml/min; Estimated Glomerular Filt Rate > 60; Glucose 105 mg/dL (65-110); Sodium 136 mmol/L (137-145)
--- NOTE | 2023-12-29 17:26 | ED.DIZZY ---
HPI - Dizziness General Chief Complaint: Dizziness Stated Complaint: lightheaded Time Seen by Provider: 12/29/23 15:00 Source: patient Mode of arrival: ambulatory Limitations: no limitations History of Present Illness HPI Narrative: This is a 63-year-old male, with history of hypertension and CAD, who presents emergency department complaining of some lightheadedness today. The patient states he felt generally weak in all 4 limbs and lightheaded that worsened with bending forward. He denies recent nausea, vomiting, diarrhea, increased urination, blood in stool or changes concerning for melena. He states he has not drink as much water as usual. He states overall he feels much improved. He has no other complaints at this time. Related Data Home Medications Medication Instructions Recorded Confirmed aspirin 81 mg tablet 81 mg PO DAILY 05/07/20 12/20/23 atorvastatin 80 mg tablet 80 mg PO HS 05/07/20 12/20/23 ezetimibe 10 mg tablet 10 mg PO DAILY 05/07/20 12/20/23 isosorbide mononitrate 30 mg 30 mg PO DAILY 05/06/22 12/20/23 tablet,extended release 24 hr Allergies Allergy/AdvReac Type Severity Reaction Status Date / Time Penicillins Allergy Unknown Other Verified 12/20/23 16:12 Review of Systems Review of Systems: All systems reviewed & are unremarkable except as noted in HPI and below PMFSH Past Medical History Medical History Atherosclerotic heart disease of [place] coronary artery without angina pectoris Coronary artery disease Erectile disorder Essential (primary) hypertension Family history of colon cancer Obesity Pure hypercholesterolemia, unspecified Surgical History Surgical History History of heart artery stent Presence of coronary angioplasty implant and graft Family History Family History Mother Heart disease COPD (chronic obstructive pulmonary disease) Cardiomegaly Social History Social History Smoking status: Former smoker Tobacco type: cigarettes Second hand tobacco smoke exposure: No Alcohol intake: current Drinks per week: 4 Alcohol use details: 1x day Substance use: never Substance use type: does not use Do You Feel Safe in your Home?: Yes Lack of Transportation: No Lack of Food: Never True Current Housing: I Have Housing Concerned About Future Housing: No Difficulty Paying Gas/Electric Bills: No Difficulty Paying for Meds: No Currently Unemployed: No Education: Associate Degree Difficulty w/ Childcare or Family Care: No Living arrangements: with family Occupation/Education: occupation Gender identity (if verbalized by the patient): Male Sexual Orientation (if Verbalized by the Patient): Straight or Heterosexual Spiritual care concerns: No Exam Narrative: GENERAL: Well-developed, well-nourished, and in no acute distress. HEAD: Normocephalic, atraumatic. EYES: PERRLA and EOMI. CHEST: Clear to auscultation. No respiratory distress. No wheezes rales or rhonchi HEART: Regular rate and rhythm. No murmur heard. Normal peripheral pulses. ABDOMEN: Soft, nontender, nondistended, normal active bowel sounds. EXTREMITIES: Normal range of motion. No edema. SKIN: Warm, dry, no rash. NEURO: Alert and oriented x3. No focal deficit. Moving all 4 limbs spontaneously PSYCH: Normal mood and affect. Course Course Emergency Course: 17:28 - CBC demonstrates mildly decreased hemoglobin of 13.4 with baseline of 14.3 but is otherwise unremarkable. Chemistries demonstrate mild hyponatremia with sodium of 136 with stable total bilirubin elevation of 1.4. Chest x-ray unremarkable pop. EKG demonstrates right bundle branch block without other changes concerning for arrhythmia or ischemia. Orthostatic vital signs unremarkable. Advise
== END 2023-12-29 17:43 | disposition home or self-care (01) ==
PROVIDERS: Emergency Medicine; Emergency Provider Preventive Medicine Aerospace Medicine; PCP Family Medicine
DX: I25.10 Atherosclerotic heart disease of native coronary artery without angina pectoris (principal); I10 Essential (primary) hypertension; I45.2 Bifascicular block
CPT/HCPCS: 36415; 71046; 80053; 85025; 85055; 93005; 99284

== ENCOUNTER 2024-09-08 06:05 | Emergency (ER) | payer BC, SELFPAY ==
--- NOTE | ~2024-09-08 | US_ITS ---
Limited Abdominal Sonogram: Real-time sonographic imaging of the right upper quadrant was performed. Clinical History: Right upper quadrant pain Findings: The liver appears normal with no evidence of mass lesion or bile duct dilatation. Main por gaby vein demonstrates normal direction of flow. The gallbladder is well distended, and demonstrates p robable gallbladder sludge. The common bile duct measures 4 mm. The visualized pancreas, aorta, and IVC are unremarkable. Impression: Probable gallbladder sludge. Reviewed, dictated and finalized at location M. Impression: Probable gallbladder sludge.
--- NOTE | ~2024-09-08 | CT_ITS ---
EXAMINATION: CT abdomen pelvis w con DATE: 09/08/2024 06:46 INDICATION: Epigastric and right upper quadrant pain TECHNIQUE: Computed tomography (CT) of the abdomen and pelvis was performed with 100 cc Omnipaque 350 intravenous contrast. The dose-length product was 1430.43 mGy-cm. Automated exposure control and ite rative reconstruction technique were employed. COMPARISON: CT dated 12/28/2017 FINDINGS: Heart size normal. Lung bases unremarkable. No significant pleural or pericardial effusion. Gallbladder is distended with gallbladder wall thickening and gallstones. No ductal stones identifie d. Findings suspicious for cholecystitis. The liver, spleen, pancreas, adrenal glands and kidneys are unremarkable. Bladder is now well distended, although unremarkable. Nonobstructive bowel gas pattern . Colonic diverticulosis. No evidence for appendicitis or diverticulitis. No significant vascular abn ormality. No lymphadenopathy. Chronic superior endplate compression fracture of T12 and burst fractur e of L2 without significant change in appearance compared with prior study. There is retropulsion at L2. There is disc narrowing at L4-5 and L5-S1 with vacuum phenomena. IMPRESSION: 1. Gallbladder distention with gallbladder wall thickening and cholelithiasis. Consider cholecystitis in the appropriate clinical setting. Reviewed, dictated and finalized at location A.
[2024-09-08 06:08] VITALS: BP 146/95; PULSE 78; RESP 22; TEMP 36.5; O2SAT 98
[2024-09-08 06:12] VITALS: BP 146/95; PULSE 69; RESP 23; O2SAT 97
--- NOTE | 2024-09-08 06:15 | ECG_ITS ---
Test Date: 2024-09-08 06:24:03 Measurements Intervals [place] Rate: 63 P: 13 NM: 177 QRS: -37 QRSD: 142 T: -3 QT: 405 QTc: 417 Interpretive Statements SINUS RHYTHM LEFT AXIS DEVIATION RIGHT BUNDLE BRANCH BLOCK BASELINE ARTIFACT- I, II, III, AVR, AVL ABNORMAL ECG Compared to ECG 12/29/2023 11:18:13 NO SIGNIFICANT CHANGE Electronically Signed On 09-08-2024 07:10:52 CDT by Pantera Tracey D.O.
[2024-09-08 06:16] VITALS: BP 141/79; PULSE 73; RESP 18; O2SAT 98
[2024-09-08 06:20] LABS: Basophils Percent Auto 0.4 % (0.2-1.2); Eosinophils Percent Auto 0.4 % (0-4.4); Hematocrit 40.6 % (42.0-52.0); Hemoglobin 13.6 g/dL (14.0-18.0); Immature Granulocyte Absolute 0.04 K/mm3 (0.00-0.031); Immature Granulocyte Percent A 0.5 % (0-0.5); Immature Platelet Fraction Pct 3.1 % (0.9-11.2); Lymphocytes Absolute Auto 0.91 K/mm3 (0.9-3.2); Lymphocytes Percent Auto 11.2 % (18.3-44.2); Mean Corpuscular HGB Conc 33.5 g/dl (32-36); Mean Corpuscular Hemoglobin 30.2 pg (26-34); Mean Corpuscular Volume 90.2 fl (80-100); Mean Platelet Volume 9.9 fl (7.4-10.4); Monocytes Absolute Auto 0.3 K/mm3 (0.1-0.6); Monocytes Percent Auto 3.7 % (2.6-8.5); Neutrophils Absolute Auto 6.8 K/mm3 (1.3-6.7); Neutrophils Percent Auto 83.8 % (45.5-73.1); Platelet Count Result 130 k/mm3 (150-375); Red Cell Distribution Width 12.2 % (11.5-14.5); White Blood Count 8.1 K/mm3 (4.5-10.0)
--- NOTE | 2024-09-08 06:24 | ED.GENADULT ---
HPI - General Adult General Chief complaint: Abdominal Pain <Santana Jimenez MD - Last Filed: 09/08/24 06:26> Stated complaint: issues with my stomach <Santana Jimenez MD - Last Filed: 09/08/24 06:26> Time Seen by Provider: 09/08/24 06:22 <Santana Jimenez MD - Last Filed: 09/08/24 06:26> History of Present Illness HPI narrative: Patient is 61-year-old gentleman presents emergency department with chief complaint of abdominal pain. The patient reports that this morning he woke up having epigastric pain in the right upper quadrant and to his back the patient states that it feels as though he has indigestion patient states he did eat [place] steak for dinner last night reports he still has his gallbladder reports no prior history of pancreatitis does report that he had a heart attack in the past and has a stent placement the patient reports that when he had his heart attack his symptoms presented is indigestion. <Santana Jimenez MD - Last Filed: 09/08/24 06:26> Related Data Home medications: Home Medications ?Medication ?Instructions ?Recorded ?Confirmed ?Last Taken ?Type aspirin 81 mg tablet 81 mg PO DAILY 05/07/20 06/26/24 10/04/22 History atorvastatin 80 mg tablet 80 mg PO HS 05/07/20 06/26/24 10/04/22 History ezetimibe 10 mg tablet 10 mg PO DAILY 05/07/20 06/26/24 10/04/22 History carvedilol 3.125 mg tablet 3.125 mg PO BID 06/26/24 06/26/24 Unknown History <Santana Jimenez MD - Last Filed: 09/08/24 06:26> Allergies/adverse reactions: Allergies Allergy/AdvReac Type Severity Reaction Status Date / Time Penicillins Allergy Unknown Other Verified 09/08/24 06:11 <Santana Jimenez MD - Last Filed: 09/08/24 06:26> Review of Systems Review of Systems: A 10 system review of systems was completed on the patient and is negative except for what is stated in the HPI. Nursing and ancillary documentation was reviewed. <Santana Jimenez MD - Last Filed: 09/08/24 06:26> [facility] Past Medical History Medical History: Medical History Obesity Family history of colon cancer Atherosclerotic heart disease of [place] coronary artery without angina pectoris Pure hypercholesterolemia, unspecified Erectile disorder Coronary artery disease Essential (primary) hypertension <Santana Jimenez MD - Last Filed: 09/08/24 06:26> Surgical History Surgical History: Surgical History Presence of coronary angioplasty implant and graft History of heart artery stent <Santana Jimenez MD - Last Filed: 09/08/24 06:26> Family History Family History: Family History Mother Heart disease COPD (chronic obstructive pulmonary disease) Cardiomegaly <Santana Jimenez MD - Last Filed: 09/08/24 06:26> Social History Social History: Social History Smoking status: Former smoker Tobacco type: cigarettes Second hand tobacco smoke exposure: No Alcohol intake: current Drinks per week: 4 Alcohol use details: 1x day Substance use: never Substance use type: does not use Do You Feel Safe in your Home?: Yes Lack of Transportation: No Lack of Food: Never True Current Housing: I Have Housing Concerned About Future Housing: No Difficulty Paying Gas/Electric Bills: No Difficulty Paying for Meds: No Currently Unemployed: No Education: Associate Degree Difficulty w/ Childcare or Family Care: No Living arrangements: with family Occupation/Education: occupation Gender identity (if verbalized by the patient): Male Sexual Orientation (if Verbalized by the Patient): Straight or Heterosexual Spiritual care concerns: No <Santana Jimenez MD - Last Filed: 09/08/24 06:26> Exam Narrative: GENERAL: Well-appearing, well-nourished, and in no acute distress. HEAD: Normocephalic, atraumatic. EYES: PERRLA and EOMI. ENT: Nares clear, no rhinorrhea or epistaxis. Mucous membranes moist. NECK: Supple. CHEST: Clear to auscultation. No respiratory distress. HEART: Regular rate and rhythm. No murmur heard. Normal peripheral pulses. ABDOMEN: Soft, tenderness to palpation the epigastric and right upper quad, nondistended, normal active bowel sounds. EXTREMITIES: Normal range of motion. No edema. SKIN: Warm, dry, no rash. NEURO: No focal deficits. Alert and oriented x3. PSYCH: Normal mood and affect. <Santana Jimenez MD - Last Filed: 09/08/24 06:26> Course Vital Signs Vital signs: Vital Signs Temperature 97.7 F 09/08/24 06:08 Pulse Rate 78 09/08/24 06:08 Respiratory Rate 22 H 09/08/24 06:08 Blood Pressure 146/95 H 09/08/24 06:08 Pulse Oximetry 98 09/08/24 06:08 Oxygen Delivery Room Air 09/08/24 06:08 Temperature 97.7 F 09/08/24 06:08 Pulse Rate 68 09/08/24 06:31 Respiratory Rate 19 09/08/24 06:31 Blood Pressure 135/75 09/08/24 06:31 Pulse Oximetry 97 09/08/24 06:31 Oxygen Delivery Room Air 09/08/24 06:08 <Santana Jimenez MD - Last Filed: 09/08/24 06:26> Vital Signs Temperature 97.7 F 09/08/24 06:08 Pulse Rate 78 09/08/24 06:08 Respiratory Rate 22 H 09/08/24 06:08 Blood Pressure 146/95 H 09/08/24 06:08 Pulse Oximetry 98 09/08/24 06:08 Oxygen Delivery Room Air 09/08/24 06:08 Temperature 97.7 F 09/08/24 06:08 Pulse Rate 68 09/08/24 06:31 Respiratory Rate 19 09/08/24 06:31 Blood Pressure 135/75 09/08/24 06:31 Pulse Oximetry 97 09/08/24 06:31 Oxygen Delivery Room Air 09/08/24 06:08 <Jess Tapia MD - Last Filed: 09/08/24 08:23> Medical Decision Making MDM Narrative Medical decision making narrative: Electronic medical record was reviewed. Patient presented to the ED with complaint of [epigastric abdominal pain and vomiting]. Vitals [were within acceptable limits]. Physical exam revealed [tenderness to palpation in epigastric/right upper quadrant abdomen]. Based on the patient's history and physical exam, my differential includes but is not limited to [gastritis, gastroenteritis, cholecystitis, pancreatitis, ACS]. [IV access was established by nursing staff. Patient was given zofran, morphine]. CBC, BMP, lipase, LFTs, bilirubin and alk phos were obtained. Labs were pertinent for normal LFTs, troponin, WBC. [Decision was made to obtain a CT-abdomen to evaluate for acute abdominal process. CT-abdomen per radiology interpretation shows gallbladder wall thickening with distension and stones] On reevaluation, the patient states that they are feeling much better. There were no witnessed episodes of vomiting in the emergency department. They are not complaining of any new abdominal pain. Repeat examination did not show any significant guarding or rebound. No new tenderness. Ultrasound returned without findings of acute cholecystitis. Patient also without any pain on palpation, negative Fernandes. The patient was given strict return precautions, if they are to develop any worsening abdominal pain, vomiting, fevers or chills, or blood in the vomit they are to return to the emergency department immediately. Patient verbally acknowledges understanding these directions. [The patient was informed of the above diagnostic test findings.] They will be discharged home with prescriptions for pain medicine and nausea medicine. They were advised to follow-up with general surgery in 2 days as he may need elective cholecystectomy. The patient feels that this is appropriate medical decision making and verbalizes an understanding of the discharge instructions. <Jess Tapia MD - Last Filed: 09/08/24 08:23> Vital Signs Vital Signs: Vital Signs Temperature 97.7 F 09/08/24 06:08 Pulse Rate 78 09/08/24 06:08 Respiratory Rate 22 H 09/08/24 06:08 Blood Pressure 146/95 H 09/08/24 06:08 Pulse Oximetry 98 09/08/24 06:08 Oxygen Delivery Room Air 09/08/24 06:08 Temperature 97.7 F 09/08/24 06:08 Pulse Rate 68 09/08/24 06:31 Respiratory Rate 19 09/08/24 06:31 Blood Pressure 135/75 09/08/24 06:31 Pulse Oximetry 97 09/08/24 06:31 Oxygen Delivery Room Air 09/08/24 06:08 <Santana Jimenez MD - Last Filed: 09/08/24 06:26> Vital Signs Temperature 97.7 F 09/08/24 06:08 Pulse Rate 78 09/08/24 06:08 Respiratory Rate 22 H 09/08/24 06:08 Blood Pressure 146/95 H 09/08/24 06:08 Pulse Oximetry 98 09/08/24 06:08 Oxygen Delivery Room Air 09/08/24 06:08 Temperature 97.7 F 09/08/24 06:08 Pulse Rate 68 09/08/24 06:31 Respiratory Rate 19 09/08/24 06:31 Blood Pressure 135/75 09/08/24 06:31 Pulse Oximetry 97 09/08/24 06:31 Oxygen Delivery Room Air 09/08/24 06:08 <Jess Tapia MD - Last Filed: 09/08/24 08:23> Lab Data Result diagrams: 09/08/24 06:13 09/08/24 06:13 <Santana Jimenez MD - Last Filed: 09/08/24 06:26> Labs: Lab Results 09/08/24 09/08/24 Range/Units 06:13 07:13 WBC 8.1 (4.5-10.0) K/mm3 RBC 4.50 L (4.6-6.20) M/mm3 Hgb 13.6 L (14.0-18.0) g/dL Hct 40.6 L (42.0-52.0) % MCV 90.2 (80-100) fl MCH 30.2 (26-34) pg MCHC 33.5 (32-36) g/dl RDW 12.2 (11.5-14.5) % Plt Count 130 L (150-375) k/mm3 MPV 9.9 (7.4-10.4) fl Immature Gran % (Auto) 0.5 (0-0.5) % Neut % (Auto) 83.8 H (45.5-73.1) % Lymph % (Auto) 11.2 L (18.3-44.2) % [place] % (Auto) 3.7 (2.6-8.5) % Eos % (Auto) 0.4 (0-4.4) % Baso % (Auto) 0.4 (0.2-1.2) % Lymph # (Auto) 0.91 (0.9-3.2) K/mm3 [place] # (Auto) 0.3 (0.1-0.6) K/mm3 Eos # (Auto) 0.0 (0-0.3) K/mm3 Baso # (Auto) 0.0 (0.0-0.1) K/mm3 Abs Immat Gran (auto) 0.04 H (0.00-0.031) K/mm3 Absolute Neuts (auto) 6.8 H (1.3-6.7) K/mm3 Absolute Nucleated RBC 0.000 (0.0-0.012) K/mm3 Nucleated RBC % 0.0 (0.0-0.2) % % Immature Plt Fraction 3.1 (0.9-11.2) % Sodium 136 L (137-145) mmol/L Potassium 5.0 (3.4-5.0) mmol/L Chloride 104 (98-107) mmol/L Carbon Dioxide 24 (22-30) mmol/L Anion Gap 8 (4-12) mmol/L BUN 22 H (9-20) mg/dL Creatinine 1.18 (0.7-1.3) mg/dL Estim Creat Clear Calc Not Reportable Estimated GFR > 60 (59 - ) Glucose 146 H (65-110) mg/dL Calcium 9.1 (8.4-10.2) mg/dL Total Bilirubin 1.0 (0.2-1.3) mg/dL AST 32 (17-59) U/L ALT 24 (6-50) U/L Alkaline Phosphatase 70 (38-126) U/L Troponin I < 0.012 (0.000-0.034) ng/mL Total Protein 7.4 (6.3-8.2) g/dL Albumin 4.2 (3.5-5.1) g/dL Lipase 146 (23-300) U/L Urine Color Yellow (Yellow) Urine Appearance Clear (Clear) Urine pH 6.0 (5.0-9.0) Ur Specific [place] 1.042 H (1.001-1.035) Urine Protein Negative (Negative) mg/dL Urine Glucose (UA) Negative (Negative) mg/dL Urine Ketones Negative (Negative) mg/dL Ur Blood (Man) Negative (Negative) Urine Nitrate Negative (Negative) Urine Bilirubin Negative (Negative) Urine Urobilinogen 0.2 (<2.0) mg/dL Leukocyte Esterase Rfl Negative (Negative) CAITLYN/UL <Santana Jimenez MD - Last Filed: 09/08/24 06:26> Lab Results 09/08/24 09/08/24 Range/Units 06:13 07:13 WBC 8.1 (4.5-10.0) K/mm3 RBC 4.50 L (4.6-6.20) M/mm3 Hgb 13.6 L (14.0-18.0) g/dL Hct 40.6 L (42.0-52.0) % MCV 90.2 (80-100) fl MCH 30.2 (26-34) pg MCHC 33.5 (32-36) g/dl RDW 12.2 (11.5-14.5) % Plt Count 130 L (150-375) k/mm3 MPV 9.9 (7.4-10.4) fl Immature Gran % (Auto) 0.5 (0-0.5) % Neut % (Auto) 83.8 H (45.5-73.1) % Lymph % (Auto) 11.2 L (18.3-44.2) % [place] % (Auto) 3.7 (2.6-8.5) % Eos % (Auto) 0.4 (0-4.4) % Baso % (Auto) 0.4 (0.2-1.2) % Lymph # (Auto) 0.91 (0.9-3.2) K/mm3 [place] # (Auto) 0.3 (0.1-0.6) K/mm3 Eos # (Auto) 0.0 (0-0.3) K/mm3 Baso # (Auto) 0.0 (0.0-0.1) K/mm3 Abs Immat Gran (auto) 0.04 H (0.00-0.031) K/mm3 Absolute Neuts (auto) 6.8 H (1.3-6.7) K/mm3 Absolute Nucleated RBC 0.000 (0.0-0.012) K/mm3 Nucleated RBC % 0.0 (0.0-0.2) % % Immature Plt Fraction 3.1 (0.9-11.2) % Sodium 136 L (137-145) mmol/L Potassium 5.0 (3.4-5.0) mmol/L Chloride 104 (98-107) mmol/L Carbon Dioxide 24 (22-30) mmol/L Anion Gap 8 (4-12) mmol/L BUN 22 H (9-20) mg/dL Creatinine 1.18 (0.7-1.3) mg/dL Estim Creat Clear Calc Not Reportable Estimated GFR > 60 (59 - ) Glucose 146 H (65-110) mg/dL Calcium 9.1 (8.4-10.2) mg/dL Total Bilirubin 1.0 (0.2-1.3) mg/dL AST 32 (17-59) U/L ALT 24 (6-50) U/L Alkaline Phosphatase 70 (38-126) U/L Troponin I < 0.012 (0.000-0.034) ng/mL Total Protein 7.4 (6.3-8.2) g/dL Albumin 4.2 (3.5-5.1) g/dL Lipase 146 (23-300) U/L Urine Color Yellow (Yellow) Urine Appearance Clear (Clear) Urine pH 6.0 (5.0-9.0) Ur Specific [place] 1.042 H (1.001-1.035) Urine Protein Negative (Negative) mg/dL Urine Glucose (UA) Negative (Negative) mg/dL Urine Ketones Negative (Negative) mg/dL Ur Blood (Man) Negative (Negative) Urine Nitrate Negative (Negative) Urine Bilirubin Negative (Negative) Urine Urobilinogen 0.2 (<2.0) mg/dL Leukocyte Esterase Rfl Negative (Negative) CAITLYN/UL <Jess Tapia MD - Last Filed: 09/08/24 08:23> Discharge Plan Discharge Clinical Impression: Abdominal pain, epigastric, Cholelithiasis <Santana Jimenez MD - Last Filed: 09/08/24 06:26> Patient Disposition: Home <Santana Jimenez MD - Last Filed: 09/08/24 06:26> Condition: Stable <Santana Jimenez MD - Last Filed: 09/08/24 06:26> Instructions: Gallstones (ED) <Santana Jimenez MD - Last Filed: 09/08/24 06:26> Additional Instructions: Please follow-up with the general surgeon, try to avoid eating any foods high in fat including ice cream, and if your symptoms return or worsen, especially if you have any vomiting that does not stop for fevers or chills or severe pain to the right upper quadrant, come back to the hospital. <Santana Jimenez MD - Last Filed: 09/08/24 06:26> Patient Language: Qatari <Santana Jimenez MD - Last Filed: 09/08/24 06:26> Prescriptions: New ondansetron 4 mg tablet,disintegrating 4 mg PO Q8H PRN (Reason: nausea and vomiting) Qty: 14 0RF oxycodone 5 mg tablet 5 mg PO Q6H PRN (Reason: pain (scale score 7-10)) Qty: 10 0RF No Action carvedilol 3.125 mg tablet 3.125 mg PO BID sildenafil [Viagra] 100 mg tablet 100 mg PO DAILY PRN (Reason: sexual activity) Qty: 6 0RF Rx Instructions: administer 30 minutes to 4 hours before activity aspirin 81 mg Tablet 81 mg PO DAILY ezetimibe 10 mg Tablet 10 mg PO DAILY atorvastatin 80 mg tablet 80 mg PO HS lisinopril 10 mg Tablet 10 mg PO QAM Qty: 30 2RF <Santana Jimenez MD - Last Filed: 09/08/24 06:26> Follow-up/Referrals: Dwight Ríos MD [Primary Care Provider] - Tang Finch MD [Physician] - 2 Days <Santana Jimenez MD - Last Filed: 09/08/24 06:26>
[2024-09-08 06:27] LABS: Alanine Aminotransferase 24 U/L (6-50); Albumin Level 4.2 g/dL (3.5-5.1); Alkaline Phosphatase 70 U/L (38-126); Anion Gap 8 mmol/L (4-12); Aspartate Amino Transferase 32 U/L (17-59); Blood Urea Nitrogen 22 mg/dL (9-20); Calcium 9.1 mg/dL (8.4-10.2); Carbon Dioxide 24 mmol/L (22-30); Chloride 104 mmol/L (98-107); Estimated Glomerular Filt Rate > 60; Glucose 146 mg/dL (65-110); Lipase 146 U/L (23-300); Sodium 136 mmol/L (137-145); Total Protein 7.4 g/dL (6.3-8.2)
[2024-09-08] MEDS: MORPHINE SULFATE (*CRX) 4 MG/ML INJ IV PUSH (06:30)
[2024-09-08] MEDS: ONDANSETRON INJ 4 MG/2 ML VIAL IV PUSH (06:30)
[2024-09-08 06:31] VITALS: BP 135/75; PULSE 68; RESP 19; O2SAT 97
[2024-09-08] MEDS: SODIUM CHLORIDE 0.9% IV 1,000 ML 999 ML IV CONT (06:31)
--- OUTSIDE RECORDS SUMMARY | 2024-09-08 06:52 | XMS_ITS | Referral Summary ---
Author Organization [facility] [address] Address [address] [place] [address] Care Team Providers Care Hand Embroiderer Name Role Phone Dwight Ríos MD Primary Care Provider [phone] Jakob Estes MD Unavailable Allergies Active Allergy Reactions Criticality Noted Date Comments Penicillins Unknown Low Medications aspirin 81 mg enteric coated tablet Take 1 tablet (81 mg total) by mouth daily Active calcium carb/magnesium hydrox (ROLAIDS ORAL) Take 2 tablets by mouth daily as needed Active carvediloL (COREG) 3.125 mg tablet TAKE 1 TABLET BY MOUTH TWICE A DAY WITH FOOD 180 tablet 2 03/23/2024 Active ezetimibe (ZETIA) 10 mg tablet TAKE 1 TABLET BY MOUTH EVERY DAY 90 tablet 3 04/10/2024 Active atorvastatin (LIPITOR) 80 mg tablet TAKE 1 TABLET BY MOUTH EVERY DAY 90 tablet 3 05/24/2024 Active lisinopriL (PRINIVIL,ZESTR [place]) 10 mg tablet TAKE 1 TABLET BY MOUTH EVERY DAY IN THE MORNING 90 tablet 2 07/06/2024 Active Active Problems Problem Noted Date Diagnosed Date Chest pain 12/31/2023 History of acute myocardial infarction Benign essential HTN 12/31/2023 Pure hypercholesterolemia 12/31/2023 Obesity (BMI 30-39.9) 12/31/2023 Coronary artery disease invo [place]ving [place] coronary artery of [place] heart without angina pectoris 08/26/2016 Status post primary angioplasty with coronary st ent 08/26/2016 Dyslipidemia 08/26/2016 Social History Tobacco Use Types Packs/Day Years Used Date Smoking Tobacco: Former Smokeless Tobacco: Never Tobacco Cessation:Counseling Given: Not Answered Alcohol Use Standard Drinks/Week Comments Yes 0 (1 standard drink = 0.6 oz pur e alcohol) Personal Safety Answer Date Recorded Have you ever been in or are you currently in a harmful physical or emotional relationship or is someone making you feel afraid or unsafe? Denies 12/31/2023 Sex and Gender Information Value Date Recorded Sex Assigned at Not on file Legal Sex Male 1:17 PM ASSOCIATE DIRECTOR OF DEVELOPMENT Gender Identity Not on file Sexual Orientation Not on file Last Filed Vital Signs Vital Sign Reading Time Taken Comments Blood Pressure 130/70 05/24/2024 9:46 AM ASSOCIATE [employer]OR [employer] DEVELOPMENT Pulse 71 05/24/2024 9:46 AM ASSOCIATE [employer]OR [employer] DEVELOPMENT Temperature 36.6 C (97.8 F) 01/01/2024 4:44 AM CDT Respiratory Rate 20 01/01/2024 4:44 AM CDT Oxygen Saturation 96% 05/24/2024 9:46 AM ASSOCIATE DIRECTOR [employer] DEVELOPMENT Inhaled Oxygen Concentration - - Weight 111.1 kg (245 lb) 05/24/2024 9:46 AM ASSOCIATE DIRECTOR [employer] DEVELOPMENT Height 177.8 cm (5' 10) 05/24/2024 9:46 AM ASSOCIATE DIRECTOR OF DEVELOPMENT Body Mass Index 35.15 05/24/2024 9:46 AM ASSOCIATE DIRECTOR OF DEVELOPMENT Plan of Treatment Not on file Insurance CHOICE PLUS [facility] ACCESS CHOICE Advance Directives For more information, please contact: [phone] * Full Code (Latest Code Status on File) Date Activated Date Inactivated Comments 12/31/2023 3:23 PM 01/01/2024 4:25 PM Care Teams Hand Embroiderer Relationship Specialty Start Date End Date Dwight Ríos MD [address] [place] [address] PCP - General 06/19/16 Jakob Estes MD [address] [id number] Consulting Physician Cardiology 01/01/24
--- OUTSIDE RECORDS SUMMARY | 2024-09-08 06:52 | XMS_ITS | Clinical Summary ---
Author Organization [facility] [place] [address] Address [address] [place] [address] Care Team Providers Care Quoter Name Role Phone Dwight Ríos MD Primary Care Provider [phone] Jakob Estes MD Unavailable Allergies Active Allergy [...] 30-39.9) 12/31/2023 Coronary artery disease invo lving [place] coronary artery of [place] heart without angina pectoris 08/26/2016 Status post primary angioplasty with coronary st ent 08/26/2016 Dyslipidemia 08/26/2016 Surgical History Surgery Date Site/Laterality Comments CARDIAC CATHETERIZATION CARDIAC STENT PLACEMENT Medical History Medical History Date Comments Gastroesophageal reflux disease GERD Ischemic heart disease Ischemic heart disease Hx Other Medical Anteroseptal ST [facility] Cardiac arrest (HCC) 2016 CAD in [place] artery STEMI (ST elevation myocardial infarction) (HCC) Family History Medical History Relation Name Comments Other Brother 2 Alive and well; Other Father Alive and well; Heart attack Mother Myocardial infa rction; Cause of : Myocardial infarction Heart disease Other Family history of Cardiovascular disease; Relation Name Status Comments Brother 1 Alive Brother 2 Father Alive Mother (Age 79) Other Social History Tobacco Use Types Packs/Day Years [...] on file Legal Sex Male 1:17 PM LINE ORDERING CLINICIAN Gender Identity Not on file Sexual Orientation Not on file Obstetrics History Last Filed Vital Signs Vital Sign Reading Time Taken Comments Blood Pressure 130/70 05/24/2024 9:46 AM LINE ORDERING CLINICIAN Pulse 71 05/24/2024 9:46 AM LINE ORDERING CLINICIAN Temperature 36.6 C (97.8 F) 01/01/2024 4:44 AM CDT Respiratory Rate 20 01/01/2024 4:44 AM CDT Oxygen Saturation 96% 05/24/2024 9:46 AM LINE ORDERING CLINICIAN Inhaled Oxygen Concentration - - Weight 111.1 kg (245 lb) 05/24/2024 9:46 AM LINE ORDERING CLINICIAN Height 177.8 cm (5' 10) 05/24/2024 9:46 AM LINE ORDERING CLINICIAN Body Mass Index 35.15 05/24/2024 9:46 AM LINE ORDERING CLINICIAN Plan of Treatment Health Maintenance Due Date Last Done Comments Colon Cancer Screening-Colonoscopy 1961 Depression Screening 1961 Hepatitis C Screening 1961 Prostate Cancer Screening-PSA 1961 DTaP/Tdap/Td Vaccine (1 - Tdap) 1972 Hepatitis B Screening 10/01/1979 Regular Well Visit/Exam 18-64 10/01/1979 Pneumococcal vaccine <65 (1 of 2 - PCV) 1980 Zoster Vaccine (1 of 2) 10/01/2011 Influenza Vaccine (Season Ended) 2024 01/08/20 19, 12/31/2017 Insurance [facility] CHOICE PLUS ANTHEM ACCESS CHOICE Advance Directives For more information, please contact: [phone] * Full Code (Latest Code Status on File) Date Activated Date Inactivated Comments 12/31/2023 3:23 PM 01/01/2024 4:25 PM Care Teams Quoter Relationship Specialty Start Date End Date Dwight Ríos MD [address] [place] [address] PCP - General 06/19/16 Jakob Estes MD [address] [place], [place] [id number] Consulting Physician Cardiology 01/01/24
--- OUTSIDE RECORDS SUMMARY | 2024-09-08 06:52 | XMS_ITS | Encounter Summary ---
Author Organization [facility] Address [address] [facility] [address] [place] [address] Care Team Providers Care Speech And Language Specialist Name Role Phone Dwight Ríos MD Primary Care Provider [phone] Dwight Ríos MD Primary Care Provider [phone] Jakob Estes MD Unavailable Encounter Details Date Type Department Care Team (Late st Contact Info) Description 01/13/2016 Orders Only [facility] ProviderSonu MD [address] [place] [address] Social History Tobacco Use Types Packs/Day Years Used Date Smoking Tobacco: Never Assessed Sex and Gender Information Value Date Recorded Sex Assigned at Not on file Legal Sex Male 1:17 PM LEAD ETL DEVELOPER Gender Identity Not on file Sexual Orientation Not on file documented as of this encounter Plan of Treatment Not on file documented as of this encounter Procedures Procedure Name Priority Date/Time Associated Diagnosis Comments CARDIOLOGY REPORT 01/13/2016 documented in this encounter Results * CARDIOLOGY REPORT (01/13/2016) Anatomical Region Laterality Modality Other Narrative 01/13/2016 Ordered by an unspecified provider. Historical Provider [facility] Final Result documented in this encounter Visit Diagnoses Not on filedocumented in this encounter Care Teams Speech And Language Specialist Relationship Specialty Start Date End Date Dwight Ríos MD [address] [place] [address] PCP - General 06/19/16 Dwight Ríos MD [address] [place] [address] PCP - General 03/31/16 06/18/16 Jakob Estes MD [address] [place] [address] Consulting Physician Cardiology 01/01/24 documented as of this encounter
--- OUTSIDE RECORDS SUMMARY | 2024-09-08 06:52 | XMS_ITS | Clinical Summary ---
Author Organization [facility] Address [address] [place] [address] Care Team Providers Care Manager Of Applications Development Name Role Phone Dwight Ríos MD Primary Care Provider [phone] Source Comments [facility],non-owned Affiliates and Associated Physician Practices is amultiple site organization consisting of ambulatory clinics and hospital sitesin [place], [place], [place] and [place]. This disclosure is being madepursuant to the Care Everywhere program and may not contain all information available regarding this patient. Last updated 17.[facility] Allergies Active Allergy Reactions Criticality Noted Date Comments Penicillins Unknown Reaction: Unknown, Medications * Be aware that medications may not be up to date on this document. Alwaysverify current medications with the patient. aspirin (ASPIRIN) 81 MG chew tablet Take 81 mg by mouth once daily Active carvedilol (COREG) 3.125 MG tablet Take 3.125 mg by mouth 2 times daily with morning and evening meal Active atorvastatin (LIPITOR) 80 MG tablet Take 80 mg by mouth once daily Active acetaminophen (TYLENOL) 500 MG tablet Take 1 tablet by mouth every 6 hours as needed Maximum allowable Acetaminophen amount = 4 Grams (4000 mg) / 24 hours. 8 Active bacitracin (BACITRACIN) 500 UNIT/GM ointment Apply to affected area 2 times daily 113.4 g 8 Active Additional Information Patient not taking.Reported on 07/19/2018 Active Problems Problem Noted Date Diagnosed Date Impaired mobility and ADLs 12/31/2017 Acute pain due to trauma 12/30/2017 Essential hypertension 12/30/2017 Coronary artery disease invo lving [place] coronary artery of [place] heart 12/30/2017 T12 compression fracture 12/29/2017 Fracture of multiple ribs of left side 8 Compression fracture of L2 l umbar vertebra, closed, initial encounter 12/29/2017 Fracture of one rib of left side 12/29/2017 Pulmonary nodules 12/29/2017 Immunizations Immunization Administration Dates Next Due INFLUENZA VACCINE, QUADR. 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 Gender Identity Not on file Sexual Orientation Not on file Last Filed Vital Signs Vital Sign Reading Time Taken Comments Blood Pressure 114/77 12/31/2017 6:14 PM CDT Pulse 80 12/31/2017 6:14 PM CDT Temperature 36.6 C (97.9 F) 12/31/2017 3:47 PM CDT Respiratory Rate 17 12/31/2017 3:47 PM CDT Oxygen Saturation 94% 12/31/2017 3:47 PM CDT Inhaled Oxygen Concentration - - Weight 102.1 kg (225 lb) 12/28/2017 11:32 PM CDT Height 177.8 cm (5' 10) 12/28/2017 11:32 PM CDT Body Mass Index 32.28 12/28/2017 11:32 PM CDT Plan of Treatment Health Maintenance Due Date Last Done Comments COLOGUARD (AGES 45-75) - COL ON CA SCREENING 1961 COLON MONITORING 1961 COLONOSCOPY - COLON CA SCREENING 1961 CT COLONOGRAPHY - COLON CA SCREENING 1961 Colorectal Cancer Screening 1961 FIT - COLON CA SCREENING 1961 FLEX SIG - COLON CA SCREENING 1961 HIV SCREENING 1976 HEPATITIS C SCREENING 09/26/1979 DTAP/TDAP/TD VACCINES (1 - Tdap) 1980 PNEUMOCOCCAL VACCINE 50+ (1 of 1 - PCV) 10/01/2011 ZOSTER VACCINE (1 of 2) 10/01/2011 SCREENING FOR DIABETES 04/20/2021 9, 12/29/2017 Respiratory Syncytial Virus (RSV) Vaccine Pt: or over 60 yrs (1 - Risk 60-74 years 1-dose series) 2021 COVID-19 VACCINE (1 - 2023-2 5 season) 2023 DEPRESSION SCREENING 03/22/2024 INFLUENZA VACCINE (Season Ended) 2024 12/31/2017 HEPATITIS B VACCINE Aged Out No longe r eligible based on patient's age to complete this topic HIB VACCINE Aged Out No longer eligi ble based on patient's age to complete this topic HPV VACCINE Aged Out No longer eligi ble based on patient's age to complete this topic MENINGOCOCCAL (Group B) VACCINE SHARED DECISION-MAKING Aged Out No longer eligible based on patient's age to complete this topic MENINGOCOCCAL GROUPS A/C/Y/W VACCINE Aged Out No longer eligible b ased on patient's age to complete this topic Procedures Procedure Name Priority Date/Time Associated Diagnosis Comments COMPREHENSIVE METABOLIC PANEL STAT 12/29/2017 12:01 AM CDT from Last 3 Months or Most Recently Relevant to Health Maintenance Results * (ABNORMAL) COMPREHENSIVE METABOLIC PANEL (12/29/2017 12:01 AM CDT) BUN 16 7 - 26 mg/dL 12/29/2017 12:26 AM [facility] Creatinine 1.1 0.6 - 1.2 mg/dL 12/29/2017 12:26 AM [facility] Sodium 136 136 - 145 mmol/L 12/29/2017 12:26 AM [facility] Potassium 4.2 3.5 - 4.5 mmol/L 12/29/2017 12:26 AM [facility] Chloride 104 98 - 107 mmol/L 12/29/2017 12:26 AM [facility] CO2 21(L) 22 - 29 mmol/L 12/29/2017 12:26 AM [facility] Glucose 97 70 - 115 mg/dL 12/29/2017 12:26 AM [facility] Calcium 9.4 8.4 - 10.2 mg/dL 12/29/2017 12:26 AM [facility] Protein Total 6.9 6.0 - 8.3 g/dL 12/29/2017 12:26 AM [facility] Albumin 3.8 3.4 - 5.0 g/dL 12/29/2017 12:26 AM [facility] Bilirubin Total 1.9(H) 0.2 - 1.2 mg/dL 12/29/2017 12:26 AM [facility] Alkaline Phosphatase 73 40 - 150 Units/L 12/29/2017 12:26 AM [facility] ALT 24 0 - 55 Units/L 12/29/2017 12:26 AM [facility] AST 23 5 - 34 Units/L 12/29/2017 12:26 AM [facility] Anion Gap 15 8 - 18 12/29/2017 12:26 AM [facility] BUN/Creatinine Ratio 15 7 - 23 12/29/2017 12:26 AM [facility] Osmolality Calculated 283 270 - 300 mOsm/kg 12/29/2017 12:26 AM [facility] Albumin/Globulin Ratio 1.2 1.1 - 2.3 12/29/2017 12:26 AM [facility] eGFR >60 >60 mL/min/1.7 3 m2 12/29/2017 12:26 AM [facility] Blood BLOOD SPECIMEN / Unknown Venipuncture / Unknown 12/29/2017 12:01 AM CDT 12/29/2017 12:01 AM T Nic Ospina MD LAB - CHEMISTRY ORDERABLES Final Result [facility] [address] [place] [address] from Last 3 Months or Most Recently Relevant to Health Maintenance Insurance [facility] PAYOR GENERIC [place] [id number] [employer] [facility] Address: [facility] [id number] [place] [phone] * Guarantor: [id number] Account Type Relation to Patient Date of Phone Billing Address Workers Comp Employer Advance Directives * Full Code (Latest Code Status on File) Date Activated Date Inactivated Comments 12/29/2017 2:40 AM 12/31/2017 8:43 PM Care Teams Manager Of Applications Development Relationship Specialty Start Date End Date Dwight Ríos MD PCP - General Family Medicine 12/28/17
--- OUTSIDE RECORDS SUMMARY | 2024-09-08 06:52 | XMS_ITS | Encounter Summary ---
Author Organization [facility] Address [address] [facility] [address] [place] [address] Care Team Providers Care Senior Construction Manager Name Role Phone Dwight Ríos MD Primary Care Provider [phone] Jakob Estes MD Unavailable Encounter Details Date Type Department Care Team (Late st Contact Info) Description 06/30/2016 Orders Only [facility] ProviderSonu MD [address] [place] [address] Social History Tobacco Use Types Packs/Day Years Used Date Smoking Tobacco: Former Cigarettes Q uit: 03/14/2016 Alcohol Use Standard Drinks/Week Comments Yes 0 (1 standard drink = 0.6 oz pur e alcohol) Sex and Gender Information Value Date Recorded Sex Assigned at Not on file 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 Historical Provider [facility] Final Result documented in this encounter Visit Diagnoses Not on filedocumented in this encounter Care Teams Senior Construction Manager Relationship Specialty Start Date End Date Dwight Ríos MD [address] [place] [address] PCP - General 06/19/16 Jakob Estes MD [address] [place] [address] Consulting Physician Cardiology 01/01/24 documented as of this encounter
[2024-09-08 07:19] LABS: Add Urine Microscopic? NO; Appearance Urine Clear (Clear); Bilirubin Urine Negative (Negative); Blood Urine Negative (Negative); Color Urine Yellow (Yellow); Glucose Urine UA Negative (Negative); Ketones Urine Negative (Negative); Leukocyte Esterase Ur Negative LEU/UL (Negative); Nitrate Urine Negative (Negative); Protein Urine Negative (Negative); Specific Grav Ur 1.042 (1.001-1.035); Urobilinogen Urine 0.2 mg/dL (<2.0)
[2024-09-08 07:34] LABS: Troponin I < 0.012 ng/mL (0.000-0.034)
[2024-09-08 08:25] VITALS: BP 121/71; PULSE 56; RESP 18; TEMP 36.6; O2SAT 99
== END 2024-09-08 08:39 | disposition home or self-care (01) ==
PROVIDERS: Emergency Medicine; Emergency Provider Emergency Medicine; PCP Family Medicine
DX: K80.20 Calculus of gallbladder without cholecystitis without obstruction (principal); E78.00 Pure hypercholesterolemia, unspecified; I25.10 Atherosclerotic heart disease of native coronary artery without angina pectoris; I10 Essential (primary) hypertension; Z87.891 Personal history of nicotine dependence; E66.9 Obesity, unspecified; Z68.34 Body mass index [BMI] 34.0-34.9, adult
CPT/HCPCS: 36415; 74177; 76705; 80053; 81003; 83690; 84484; 85025; 85055; 93005; 96361; 96374; 96375; 99284; J2270; J2405; J7030; Q9967

== ENCOUNTER 2024-09-09 19:45 | Emergency (ER) | payer BC, SELFPAY ==
--- NOTE | 2024-09-09 19:49 | ED.ANIMALBIT ---
HPI - Animal Bite General Chief Complaint: Wound/Laceration Stated Complaint: Cat Bite Time Seen by Provider: 09/09/24 19:49 Source: patient Mode of arrival: ambulatory Limitations: no limitations History of Present Illness HPI narrative: Iván is a 63-year-old male patient presenting to the clinic today with complaints of a cat bite to right hand that occurred approximately 30 minutes prior to arrival. 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 Cat was nice initially. Has to scratches to the right hand with 3 puncture wound jung. Bleeding is controlled. Tetanus is up-to-date- January 2022 Related Data Home Medications ?Medication ?Instructions ?Recorded ?Confirmed ?Last Taken ?Type aspirin 81 mg tablet 81 mg PO DAILY 05/07/20 06/26/24 10/04/22 History atorvastatin 80 mg tablet 80 mg PO HS 05/07/20 06/26/24 10/04/22 History ezetimibe 10 mg tablet 10 mg PO DAILY 05/07/20 06/26/24 10/04/22 History carvedilol 3.125 mg tablet 3.125 mg PO BID 06/26/24 06/26/24 Unknown History Allergies Allergy/AdvReac Type Severity Reaction Status Date / Time Penicillins Allergy Unknown Other Verified 09/09/24 20:01 Review of Systems Review of Systems: Pertinent positives per HPI. Patient denies any fever, chills, rash, headache, visual changes, dizziness, cough, runny nose, sore throat, shortness of breath, chest pain, palpitations, nausea, vomiting, diarrhea, constipation, abdominal pain, or any urinary issues. [facility] Past Medical History Medical History Obesity Family history of colon cancer Atherosclerotic heart disease of [place] coronary artery without angina pectoris Pure hypercholesterolemia, unspecified Erectile disorder Coronary artery disease Essential (primary) hypertension Surgical History Surgical History Presence of coronary angioplasty implant and graft History of heart artery stent Family History Family History Mother Heart disease COPD (chronic obstructive pulmonary disease) Cardiomegaly Social History Social History (Reviewed 09/09/24 @ 19:49 by MAREN Stoddard Smoking status: Former smoker Tobacco type: cigarettes Second hand tobacco smoke exposure: No Alcohol intake: current Drinks per week: 4 Alcohol use details: 1x day Substance use: never Substance use type: does not use Do You Feel Safe in your Home?: Yes Lack of Transportation: No Lack of Food: Never True Current Housing: I Have Housing Concerned About Future Housing: No Difficulty Paying Gas/Electric Bills: No Difficulty Paying for Meds: No Currently Unemployed: No Education: Associate Degree Difficulty w/ Childcare or Family Care: No Living arrangements: with family Occupation/Education: occupation Gender identity (if verbalized by the patient): Male Sexual Orientation (if Verbalized by the Patient): Straight or Heterosexual Spiritual care concerns: No Comments At the time of my signature, I reviewed and agree with the nursing past medical, surgical, social, and family history. There is no relevant family history pertinent to the patient complaint. Exam Narrative: General: Well-developed, morbidly obese, in no apparent distress Head: Normocephalic, atraumatic. Cardio: Regular rate and rhythm, s1 and s2 normal, no murmur appreciated. Resp: Clear to auscultation bilaterally, no rhonchi, rales, wheezing or rubs. Integumentary: [place], warm, and dry, 3 puncture wound to the dorsal right hand with two scratches to the dorsal right hand Course Course Emergency Course: Portions of this record may have been created with voice recognition software. Level of Care: Express Care Visit Vital Signs Vital signs: Vital Signs Temperature 36.9 C 09/09/24 19:53 Pulse Rate 105 H 09/09/24 19:53 Respiratory Rate 20 09/09/24 19:53 Blood Pressure 119/65 09/09/24 19:53 Pulse Oximetry 97 09/09/24 19:53 Oxygen Delivery Room Air 09/09/24 19:53 Temperature 36.9 C 09/09/24 19:53 Pulse Rate 105 H 09/09/24 19:53 Respiratory Rate 20 09/09/24 19:53 Blood Pressure 119/65 09/09/24 19:53 Pulse Oximetry 97 09/09/24 19:53 Oxygen Delivery Room Air 09/09/24 19:53 Vital signs reviewed MDM - Animal Bite MDM Narrative Medical decision making narrative: At the time of visit patient is resting comfortably on the exam table. Patient appears to be nontoxic. Plan: Cat bite to the right hand. Patient allergic to Amox. Wound cleansed and dressing applied. Will send in Rx for Bactrim DS and Flagyl.Tetanus is UTD. Patient concerned for rabies. Does not want cat tested. Explained that the patient would need to go to the Emergency Room if he would like the rabies shots. He voiced understanding. Supportive measures were discussed with the patient and they voiced understanding discharge instructions and agrees to treatment plan. Return precautions reviewed Differential Diagnosis Differential diagnosis: Likely bite by animal, cat bite, dog bite and rabies contact Discharge Plan Discharge Clinical Impression: Cat bite Patient Disposition: Home Condition: Stable Instructions: Antibiotic Form, Animal Bite (ED), Rabies (ED) Additional Instructions: Take Bactrim and metronidazole as prescribed Keep wound clean and dry May take Tylenol/ Motrin as needed for pain Keep wound clean and dry If you are concerned about rabies recommend going to the emergency room for further evaluation as we cannot give the rabies vaccine in the clinic today. You should also get the cat tested if your concern for rabies. Watch for signs and symptoms of infection- redness, streaking, swelling, purulent discharge, or increase in pain. Follow up with your PCP in 2-3 days for wound check Patient Language: Japanese Prescriptions: New metronidazole 500 mg tablet 500 mg PO Q8H 5 Days Qty: 15 0RF sulfamethoxazole-trimethoprim [Bactrim DS] 800-160 mg tablet 1 tablet PO Q12H 5 Days Qty: 10 0RF No Action carvedilol 3.125 mg tablet 3.125 mg PO BID aspirin 81 mg Tablet 81 mg PO DAILY ezetimibe 10 mg Tablet 10 mg PO DAILY atorvastatin 80 mg tablet 80 mg PO HS Follow-up/Referrals: Dwight Ríos MD [Primary Care Provider] - Time of Disposition: 20:01 Quality NIHSS Nursing Documentation ED NIHSS nursing documentation: reviewed/agree
[2024-09-09 19:53] VITALS: BP 119/65; PULSE 105; RESP 20; TEMP 36.9; O2SAT 97
== END 2024-09-09 20:10 | disposition home or self-care (01) ==
PROVIDERS: Emergency Provider Nurse Practitioner Family; PCP Family Medicine
DX: S61.451A Open bite of right hand, initial encounter (principal); I25.10 Atherosclerotic heart disease of native coronary artery without angina pectoris; I10 Essential (primary) hypertension; Z87.891 Personal history of nicotine dependence; W55.01XA Bitten by cat, initial encounter
CPT/HCPCS: 99213; G0463

== ENCOUNTER 2024-09-15 00:24 | Day surgery (SDC) | payer BC, SELFPAY ==
[2024-09-12 14:27] VITALS: BMI 34.4
--- NOTE | 2024-09-12 14:28 | PC.NURSE ---
Report to the Outpatient Waiting Room, entrance under the green pavilion located off [facility], at time _1030_ on date _[id number]_. Planned Procedure Time: _1230_.? Time changes happen often and if your time is changed the preop area will call you the afternoon before. - You and your visitor will be asked to self-screen and do not enter if you have any COVID symptoms. Please call surgeon if you need to reschedule. - A mask is optional within the hospital at this time. Patients may have clear liquids (water, carbonated beverages, clear teas, apple juice) until 3 hours prior to surgery with a maximum of 20 ounces. - No food from midnight until time of surgery and no smoking, or chewing tobacco (or any form of nicotine). No chewing gum, candy or mints. Take only the following medications with a SIP of water on the morning of surgery: __Carvidilol____ DO NOT STOP ANY OF YOUR OTHER PRESCRIPTION MEDICATIONS PRIOR TO SURGERY EXCEPT THE FOLLOWING Hold all vitamins and supplements for 3 days per anesthesiologist. Medications to discontinue per physician Date to take last dose____ Please no make-up, nail arabic, hairspray, perfume, deodorant, or body powder the day of surgery.? No jewelry (including any body piercings) or valuables the day of surgery, leave them at home.? Please take a shower or bath the night before, or the morning of, surgery with an antibacterial soap.? Wear comfortable, loose fitting clothing.? - Jewelry must be removed prior to entering the operating room.? Rings and piercings that are not removed may be cut off. - The hospital will not accept responsibility for valuables.? - Please leave all valuables, including medications, at home the day of surgery. If you are going home after surgery, a licensed taxi driver supervisor must drive you home.? - NO public transportation without another adult if you receive anesthesia. - We recommend that an adult stay with you for 24 hours following discharge. - We also recommend that you do not drive, make important decision, drink alcoholic beverages, or take any drugs that were not prescribed by your health care provider for at least 24 hours after your discharge time. Follow any additional instructions given to you from your surgeon. Telephone instructions given to __Walt__and asked if any additional questions and then verbalized understanding. Patient advised to call surgeon office or pre surgery nurse liaison [phone] if any additional questions.
[2024-09-15] VITALS (11 sets, daily range): BP systolic 132–160; BP diastolic 73–92; PULSE 59–74; RESP 10–18; TEMP 36.4–36.9; O2SAT 93–100; BMI 34.2
--- NOTE | 2024-09-15 08:54 | P.PNAN_ITS ---
Anes - Eval Pre Procedure Procedure: Operation Date: 09/15/24 12:30 Proposed Procedures p Laparoscopic Cholecystectomy, Possible Open - Tang Finch MD Date/Time: 09/15/24 08:54 Surgeon: Stef Pre Op Diagnosis: symptomatic cholelithiasis Patient Data Age: 63 Gender: M Height: 1.78 m Weight: 109 kg Allergies Allergy/AdvReac Type Severity Reaction Status Date / Time Penicillins Allergy Unknown Other Verified 09/12/24 14:19 Home Medications ?Medication ?Instructions ?Recorded ?Confirmed ?Type aspirin 81 mg tablet 81 mg PO DAILY 05/07/20 09/12/24 History atorvastatin 80 mg tablet 80 mg PO HS 05/07/20 09/12/24 History ezetimibe 10 mg tablet 10 mg PO DAILY 05/07/20 09/12/24 History carvedilol 3.125 mg tablet 3.125 mg PO BID 06/26/24 09/12/24 History metronidazole 500 mg tablet 500 mg PO Q8H 5 days #15 tabs 09/09/24 09/12/24 Rx doxycycline hyclate 100 mg capsule 100 mg PO BID 10 days #20 caps 09/12/24 09/12/24 Rx omeprazole 20 mg capsule,delayed 20 mg PO DAILY 09/12/24 09/12/24 History release EC09/08/24 SR 63, RBBB Other studies: 01/01/24 Echo at [facility]: mild MR, mild TR, grade I diastolic dysfunction, EF 45- 50%, neg stress test on this admission (2023) negative as well, moderate cardiomegaly by CXR last cath noted 2020 nml, prox LAD LEANNE patent Patient hx anesthesia problems: none Family hx anesthesia problems: none Results Review: All pre-operative results and documents have been reviewed as part of the pre- operative evaluation. [facility] Past Medical History Medical History Heart attack 03/14/2016 VFib arrest while At ER. shocked X 4, computer laboratory technician placed one LEANNE to prox LAD Gallbladder disorder Obesity Family history of colon cancer Atherosclerotic heart disease of [place] coronary artery without angina pectoris Pure hypercholesterolemia, unspecified Erectile disorder Coronary artery disease Essential (primary) hypertension Surgical History Surgical History Presence of coronary angioplasty implant and graft History of heart artery stent 2016 Family History Family History Mother Heart disease COPD (chronic obstructive pulmonary disease) Cardiomegaly Social History Social History Smoking status: Former smoker Tobacco type: cigarettes Second hand tobacco smoke exposure: No Alcohol intake: current Drinks per week: 4 Alcohol use details: 1x day Substance use: never Substance use type: does not use Do You Feel Safe in your Home?: Yes Lack of Transportation: No Lack of Food: Never True Current Housing: I Have Housing Concerned About Future Housing: No Difficulty Paying Gas/Electric Bills: No Difficulty Paying for Meds: No Currently Unemployed: No Education: Associate Degree Difficulty w/ Childcare or Family Care: No Living arrangements: with family Occupation/Education: occupation Gender identity (if verbalized by the patient): Male Sexual Orientation (if Verbalized by the Patient): Straight or Heterosexual Spiritual care concerns: No Exam Day of Procedure 09/15/24 08:54
[2024-09-15] MEDS: LACTATED RINGERS 1,000 ML 30 ML IV CONT ×2 (11:00→15:20)
[2024-09-15 11:29] LABS: Amylase 96 U/L (30-110)
[2024-09-15] MEDS: KETOROLAC 15 MG/ML VIAL (*BKC) IV PUSH ×2 (11:57→14:08)
[2024-09-15] MEDS: ACETAMINOPHEN 500 MG TABLET 1000 MG PO (11:57)
--- NOTE | 2024-09-15 12:22 | WPDHPUPDATE1 ---
History and Physical Update Update Date/Time: 09/15/24 12:22 History and Physical has been reviewed, including an updated exam of the patient. There are NO changes in the patient's condition. Risks, benefits, and alternatives have been discussed and questions answered. Patient agrees to proceed with procedure.
[2024-09-15] MEDS: LIDO 1%/EPINEPHRINE 1:100,000 20 ML VIAL 30 ML INFILTRATE (12:51)
[2024-09-15] MEDS: BUPivacaine HCL 0.5% 10 ML AMP 30 ML INFILTRATE (12:52)
--- NOTE | 2024-09-15 12:58 | P.PNAN_ITS ---
Anes - Eval Final PreProcedure Day of Procedure 09/15/24 12:58 Heart: regular rate and rhythm Lungs: clear to auscultation and decreased breath sounds Airway: Mallampati scale class II Neurological: alert and oriented Last oral intake: >/= 8 hours ASA classification: III Emergent: no Anesthetic plan: proceed Anesthesia type and monitoring: general ETT Results Review: All pre-operative results and documents have been reviewed as part of the pre- operative evaluation. Informed Consent: The patient's anesthetic plan and its attendant risks and benefits were discussed with the patient/family/POA. Questions were solicited and answers provided to the satisfaction of the patient/family/POA.
[2024-09-15] MEDS: ceFAZolin 2 GM/D5W 50 ML 2 GM/50 ML BAG IVPB (13:05)
--- NOTE | 2024-09-15 13:15 | P.PNAN_ITS ---
Anes - Eval Final PreProcedure Day of Procedure 09/15/24 13:15 Patient weight: obese Heart: regular rate and rhythm Lungs: clear to auscultation Airway: Mallampati scale class II Neurological: alert and oriented Last oral intake: >/= 8 hours ASA classification: III Emergent: no Anesthetic plan: proceed Anesthesia type and monitoring: general ETT and standard monitoring Other findings: exam per MG Results Review: All pre-operative results and documents have been reviewed as part of the pre- operative evaluation. Informed Consent: The patient's anesthetic plan and its attendant risks and benefits were discussed with the patient/family/POA. Questions were solicited and answers provided to the satisfaction of the patient/family/POA.
--- NOTE | 2024-09-15 13:30 | S_PTH ---
PATIENT: David Hartley Jr. LOC: [facility] U#:[id number] AGE/SX: 63/M ROOM: RE09/15/[address]: Tang Finch MD : 1960 BED: DIS: 09/15/2024 SPEC #: [id number] RECD: 09/18/24 07:38 STATUS: YULIANA REQ #: [id number] EMILEE: 09/15/24 13:[address]: Tang Finch DEPT: [facility] Surgical RECD BY: Tamar Merritt ENTERED: 09/18/24 07:38 SP TYPE: Surgical OTHR DR: Dwight Ríos MD Tissues: A - Gallbladder Procedures: Hematoxylin and Eosin Stain Gross and Microscopic Level 3
--- NOTE | 2024-09-15 14:47 | W.PM.PROC2 ---
Procedure Note - Detailed Date of Procedure 09/15/24 Pre-op Diagnosis Symptomatic cholelithiasis Post-op Diagnosis Other (Chronic cholecystitis secondary to cholelithiasis) Procedure Performed Laparoscopic cholecystectomy Surgeon Tang Finch MD [employer] Rinku Posada, REMEDIATION PROJECT ENGINEER Anesthesia General Indications Patient is a 63-year-old gentleman who about 2 weeks ago was seen in the emergency room for severe epigastric right upper quadrant abdominal pain. At that time he appeared to have biliary colic without elevations liver enzymes and normal white blood cell count. He was made comfortable with some pain medicine emergency room and a imaging study showed gallstones but no evidence of acute inflammation of the gallbladder. The gallbladder was distended. He was discharged from the emergency room and he will follow up in the office earlier this week. His symptoms and exam were consistent with likely the symptomatic cholelithiasis the possibility of some chronic cholecystitis due to his gallstones. He presents now for elective laparoscopic cholecystectomy. Findings The patient mild chronic inflammatory change of the gallbladder. A single gallstone was found in the gallbladder. Description of Procedure After informed consent was obtained patient brought to the operating room was placed supine position and general endotracheal anesthesia was administered. The abdomen is then prepped draped usual sterile fashion. Time-out was then performed correctly identifying the patient as well as procedure to be performed. He was given perioperative IV antibiotics. I entered the abdomen left upper quadrant utilizing a 5mm Optiview port. Once inside the abdomen insufflated to adequate pneumoperitoneum of 15mmHg of CO2. There were no adhesions around the umbilicus so I placed a 5mm periumbilical trocar port under direct visualization. Laparoscopic switched over to the periumbilical trocar port looking to the upper portions of the abdomen I placed an epigastric 10mm trocar port and 2 right lateral subcostal 5mm trocar ports all under direct visualization. A could see that the omentum was draped over the gallbladder was actually adherent to the anterior surface the right lobe of the liver. I then proceeded to perform adhesiolysis of the omentum off of the liver with hook electrocautery. Once this was done the omentum then flipped inferiorly and I was able to identify the gallbladder. The gallbladder was mildly thickened without acute inflammatory changes. I was able to hold the gallbladder at the dome and elevated the gallbladder up over the right half liver. There were some omental adhesions to the infundibular gallbladder which were easily stripped down bluntly. A 2nd grasper was then used to hold the gallbladder infundibulum the continue to strip down the visceral peritoneum off of the infundibular gallbladder to identify the cystic duct. The cystic duct was then dissected out circumferentially. Cystic artery was identified and dissected out circumferentially as well. There was a posterior branch the cystic artery and this was dissected out as well. Once I had a critical view I then placed 2 clips proximally cystic duct and 2 clips distally high on infundibular gallbladder. The cystic duct was then divided Endo Marina. The cystic artery was then divided both the anterior posterior branches after clips were placed. The gallbladder was then resected off the liver utilized electrocautery. Once the gallbladder was freed from the liver is placed in Endo-Catch bag and brought out through the epigastric port site. There is no spillage of bile or gallstones within the abdomen. The gallbladder was then passed off table sent to pathology for examination. I then irrigated out the right upper quadrant the abdomen and the gallbladder fossa with copious amounts sterile saline solution. Hemostasis was good. No evidence of bile leak. I then aspirated the fluid from right upper quadrant the abdomen from the pelvis. Then removed all the trocar ports under visualization all port sites appeared hemostatic. The abdomen was allowed to decompress. The epigastric 10mm trocar port fascial defect was then closed utilizing 0 Vicryl suture at the fascial level. The skin edges in all the port sites were then approximated utilizing a running subcuticular 4-0 Monocryl suture. The incisions were then cleaned the skin glue was applied. The patient tolerated the procedure well no complications. All sponges, needles, and instrument counts were correct at the end procedure. EBL was _25__cc. The patient was awakened and taken to recovery in stable and satisfactory condition. Implants None Estimated Blood Loss 25 Drains No Packing No Pathology Yes (Gallbladder and gallstones to pathology) Complications No immediate complications Condition Stable Disposition PACU [facility] Billing Surgery - Charge Forward: Surgery Billing
[2024-09-15] MEDS: fentaNYL CITRATE INJ (*CRX) 100 MCG/2 ML VIAL 25 MCG IV PUSH ×8 (15:09→15:46)
[2024-09-15] MEDS: oxyCODONE HCL (*CRX) 5 MG TAB IR PO (16:26)
[2024-09-15] MEDS: ONDANSETRON INJ 4 MG/2 ML VIAL IV PUSH (17:02)
== END 2024-09-15 17:13 | disposition home or self-care (01) ==
PROVIDERS: PCP Family Medicine; Visit Provider Surgery
PROC: 0FT44ZZ Resection of Gallbladder, Percutaneous Endoscopic Approach (ICD-10-PCS; CPT 47562; principal; 2024-09-15 12:30)
DX: K80.10 Calculus of gallbladder with chronic cholecystitis without obstruction (principal); K82.8 Other specified diseases of gallbladder; I10 Essential (primary) hypertension; E78.00 Pure hypercholesterolemia, unspecified; N52.9 Male erectile dysfunction, unspecified; I25.10 Atherosclerotic heart disease of native coronary artery without angina pectoris; I25.2 Old myocardial infarction; E66.9 Obesity, unspecified; Z68.34 Body mass index [BMI] 34.0-34.9, adult; Z79.82 Long term (current) use of aspirin; Z95.5 Presence of coronary angioplasty implant and graft; Z87.891 Personal history of nicotine dependence; Z80.0 Family history of malignant neoplasm of digestive organs; Z82.49 Family history of ischemic heart disease and other diseases of the circulatory system
CPT/HCPCS: 47562; 36415; 82150; 88304; A9270; J0690; J1885; J2003; J2004; J2250; J2405; J2704; J3010; J7120